=== PATIENT | female | born 1965 | race African-American/Black ===

== ENCOUNTER 2019-11-09 13:08 | Emergency (ER) | payer MEDICARE, MEDICAID ==
[~2019-11-09] VITALS: Ht 157.5 cm; Wt 77.1 kg
[2019-11-09 13:10] VITALS: BP 138/90
--- NOTE | 2019-11-09 13:10 | NUR ---
ED Nurse Note: pt ambulated to ed from c/o nausea and vomiting from home starting saturday. pt said shes vomiting x 3 times. pt states he has headache and stomach pain. iv site established; line patent and intact. pt put on manager cardiac and gown.
[2019-11-09] MEDS ORDERED: DiphenhydrAMINE 50mg/ml Inj IVP ONE (13:15)
[2019-11-09] MEDS ORDERED: Metoclopramide 10mg/2ml Inj IVP ONE (13:15)
[2019-11-09] MEDS ORDERED: Morphine Sulfate 2mg/ml Inj(IV/IM USE ONLY) IVP ONE (13:15)
--- NOTE | 2019-11-09 13:17 | Emergency Room Report ---
History of Present Illness General Chief Complaint: Nausea, Vomiting, and Diarrhea Source: Patient, EMS Present Illness HPI Patient presents with 3 days of nausea vomiting and headache. The headache came on fairly quickly. She was drinking alcohol on but did not become ill until after that. She denies any coffee grounds or melena. The pain is epigastric but radiates to her back. She still has her gallbladder. She denies having this problem in the past. She felt a lump (RUQ) and was evaluated in [place] [facility] with ultrasound and CT scan. They told her that both of those were negative. This happened n the last few weeks. The lump has largely resolved but she still feels strange area in the right upper quadrant. She ate some lettuce that was later recalled from [email or web address]. She denies any diarrhea at this time. She is moving her bowels once a day. He does take omeprazole. No fevers, chills, sore throat, chest pain, palpitations, nausea, vomiting, diarrhea, dysuria, abdominal pain, shortness of breath, joint pain, rashes, depression, anxiety, visual changes, dizziness, headache. Allergies: Coded Allergies: METRONIDAZOLE (Verified Allergy, Unknown, 11/09/19) Patient History Past Medical History: see triage record Social History: Reports: smoking Social History Narrative Here with her son Reviewed Nursing Documentation: PMH: Agreed; PSxH: Agreed Review of Systems All Other Systems: negative except mentioned in HPI Physical Exam Vital Signs Date Time Temp Pulse Resp B/P (MAP) Pulse Ox O2 Delivery O2 Flow Rate FiO2 11/09/19 13:05 97.9 90 16 138/90 (106) 100 Room Air Sp02 EP Interpretation: reviewed, normal General Appearance: alert, Chronically Ill Head: normocephalic Eyes: bilateral eye normal inspection, bilateral eye PERRL, bilateral eye EOMI ENT: moist mucus membranes Neck: full range of motion, supple, no bony tend, other - Wearing soft collar Respiratory: lungs clear, normal breath sounds Cardiovascular #1: regular rate, rhythm Cardiovascular #2: 2+ radial (R) Gastrointestinal: normal inspection, normal bowel sounds, non tender, no mass, non-distended Genitourinary: no CVA tenderness Musculoskeletal: back normal, normal range of motion, digits/nails normal, gait /station normal Neurologic: alert, oriented x3, sensory intact, motor weakness - All extremities Psychiatric: anxious - Requesting pain medication Skin: warm/dry Medical Decision Making Diagnostic Impression: Primary Impression: Abdominal pain Qualified Codes: R10.84 - Generalized abdominal pain Additional Impressions: Headache Qualified Codes: R51 - Headache UTI (urinary tract infection) Qualified Codes: N39.0 - Urinary tract infection, site not specified ER Course Patient presents with right upper quadrant pain with vomiting nausea and headache. Differential includes viral syndrome, pancreatitis, all bladder disease, gastritis, peptic ulcer disease amongst others. Even though she was exposed to possibly tainted ty [place] E. coli is less likely as there is no diarrhea. She denies any sore throat and therefore influenza is less likely also. Evaluation with EKG and labs. With recent imaging that was normal and her exam imaging is not indicated at the moment. If labs are abnormal consider other studies. EKG without injury. Labs with normal white count. Elevated hemoglobin and BUN and creatinine. Lipase normal. Patient continues with headache that slightly better after morphine and Reglan. She feels somewhat nauseated and still has a bit of epigastric discomfort. Zofran and morphine are repeated with a larger dose of morphine. Discussed results with patient and son. Patient stable for outpatient observation and treatment. Laboratory Tests Test 11/09/19 13:35 11/09/19 14:40 White Blood Count 10.0 K/UL (4.8-10.8) Red Blood Count 5.44 M/UL (4.20-5.40) H Hemoglobin 16.4 G/DL (12.0-16.0) H Hematocrit 50.6 % (37.0-47.0) H Mean Corpuscular Volume 93 FL (80-99) Mean Corpuscular Hemoglobin 30.2 PG (27.0-31.0) Mean Corpuscular Hemoglobin Concent 32.4 G/DL (32.0-36.0) Red Cell Distribution Width 13.0 % (11.6-14.8) Platelet Count 331 K/UL (150-450) Mean Platelet Volume 7.4 FL (6.5-10.1) Neutrophils (%) (Auto) 67.3 % (45.0-75.0) Lymphocytes (%) (Auto) 21.6 % (20.0-45.0) Monocytes (%) (Auto) 9.0 % (1.0-10.0) Eosinophils (%) (Auto) 0.5 % (0.0-3.0) Basophils (%) (Auto) 1.6 % (0.0-2.0) Prothrombin Time 10.0 SEC (9.30-11.50) Prothrombin Time INR 0.9 (0.9-1.1) PTT 23 SEC (23-33) Sodium Level 140 MMOL/L (136-145) Potassium Level 3.1 MMOL/L (3.5-5.1) L Chloride Level 98 MMOL/L (98-107) Carbon Dioxide Level 30 MMOL/L (21-32) Anion Gap 12 mmol/L (5-15) Blood Urea Nitrogen 17 mg/dL (7-18) Creatinine 1.5 MG/DL (0.55-1.30) H Estimate Glomerular Filtration Rate 36.4 mL/min (>60) Glucose Level 129 MG/DL (74-106) H Calcium Level 10.1 MG/DL (8.5-10.1) Total Bilirubin 0.6 MG/DL (0.2-1.0) Aspartate Amino Transferase (AST) 18 U/L (15-37) Alanine Aminotransferase (ALT) 27 U/L (12-78) Alkaline Phosphatase 72 U/L (46-116) Troponin I 0.000 ng/mL (0.000-0.056) Total Protein 9.0 G/DL (6.4-8.2) H Albumin 4.4 G/DL (3.4-5.0) Globulin 4.6 g/dL Albumin/Globulin Ratio 1.0 (1.0-2.7) Lipase 64 U/L (73-393) L Urine Color Pale yellow Urine Appearance Slightly cloudy Urine pH 5 (4.5-8.0) Urine Specific [place] 1.020 (1.005-1.035) Urine Protein 2+ (NEGATIVE) H Urine Glucose (UA) Negative (NEGATIVE) Urine Ketones Negative (NEGATIVE) Urine Blood 2+ (NEGATIVE) H Urine Nitrite Negative (NEGATIVE) Urine Bilirubin Negative (NEGATIVE) Urine Urobilinogen Normal MG/DL (0.0-1.0) Urine Leukocyte Esterase 1+ (NEGATIVE) H Urine RBC 2-4 /HPF (0 - 2) H Urine WBC 15-20 /HPF (0 - 2) H Urine Squamous Epithelial Cells Many /LPF (NONE/OCC) H Urine Bacteria Few /HPF (NONE) Urine Opiates Screen Positive (NEGATIVE) H Urine Barbiturates Screen Negative (NEGATIVE) Phencyclidine (PCP) Screen Negative (NEGATIVE) Urine Amphetamines Screen Negative (NEGATIVE) Urine Benzodiazepines Screen Negative (NEGATIVE) Urine Cocaine Screen Negative (NEGATIVE) Urine Marijuana (THC) Screen Positive (NEGATIVE) H EKG Diagnostic Results Rate: normal Rhythm: NSR ST Segments: no acute changes - Left atrial enlargement Rhythm Strip Diag. Results EP Interpretation: yes Rhythm: NSR, no PVC's, no ectopy Chest X-Ray Diagnostic Results Chest X-Ray Diagnostic Results : Chest X-Ray Ordered: Yes # of Views/Limited/Complete: 1 View Indication: Other EP Interpretation: Yes Interpretation: no consolidation, no effusion, no pneumothorax, other - Port -A-Cath present, resolution of left infiltrate Impression: Other Electronically Signed by: Electronically signed by Froilan Blake MD Last Vital Signs Date Time Temp Pulse Resp B/P (MAP) Pulse Ox O2 Delivery O2 Flow Rate FiO2 11/09/19 17:00 98.9 86 14 157/86 99 Room Air Status: improved Disposition: HOME, SELF-CARE Condition: Improved Scripts Nitrofurantoin Monohyd/M-Cryst* (MACROBID 100 MG*) 100 Mg Capsule 100 MG ORAL EVERY 12 HOURS, #14 CAP Prov: Froilan Blake MD 11/09/19 Ondansetron Odt* (ZOFRAN ODT*) 4 Mg Tab.rapdis 4 MG BC EVERY 8 HOURS, #6 TAB 0 Refills Prov: Froilan Blake MD 11/09/19 Hydrocodone Bit/Acetaminophen 5-325* (NORCO 5-325*) 1 Each Tablet 1 TAB ORAL Q6H PRN for For Pain, #8 TAB 0 Refills Prov: Froilan Blake MD 11/09/19 Froilan Blake MD Nov 09, 2019 13:17
[2019-11-09 13:58] LABS: BASOPHILS % (AUTO) 1.6 % (0.0-2.0); EOSINOPHILS % (AUTO) 0.5 % (0.0-3.0); HEMATOCRIT 50.6 % (37.0-47.0); HEMOGLOBIN 16.4 G/DL (12.0-16.0); LYMPHOCYTES % (AUTO) 21.6 % (20.0-45.0); MEAN CORPUSCULAR VOLUME 93 FL (80-99); NEUTROPHILS % (AUTO) 67.3 % (45.0-75.0); PLATELET COUNT 331 K/UL (150-450); RED BLOOD COUNT 5.44 M/UL (4.20-5.40)
--- NOTE | 2019-11-09 14:00 | NUR ---
ED Nurse Note: pt ambulated to bathroom with steady gait. pt was able to obtain urine specimen. Specimen sent to lab.
[2019-11-09 14:09] LABS: ANION GAP 12 mmol/L (5-15); BLOOD UREA NITROGEN 17 mg/dL (7-18); CALCIUM 10.1 MG/DL (8.5-10.1); CARBON DIOXIDE 30 MMOL/L (21-32); CHLORIDE 98 MMOL/L (98-107); CREATININE 1.5 MG/DL (0.55-1.30); POTASSIUM 3.1 MMOL/L (3.5-5.1); SODIUM 140 MMOL/L (136-145)
[2019-11-09 14:10] LABS: INR 0.9 (0.9-1.1)
[2019-11-09 14:13] LABS: ALANINE AMINOTRANSFERASE 27 U/L (12-78); ALBUMIN 4.4 G/DL (3.4-5.0); ALKALINE PHOSPHATASE 72 U/L (46-116); ASPARTATE AMINO TRANSFERASE 18 U/L (15-37); BILIRUBIN,TOTAL 0.6 MG/DL (0.2-1.0)
--- NOTE | 2019-11-09 14:20 | NUR ---
ED Nurse Note: Pt handed off to JEFF Soriano for continuity of care. vss. no pending orders at this time.
[2019-11-09 15:34] LABS: APPEARANCE,URINE SLIGHTLY CLOUDY; BILIRUBIN, URINE NEGATIVE (NEGATIVE); COLOR,URINE PALE YELLOW; GLUCOSE, URINE (UA) NEGATIVE (NEGATIVE); KETONES,URINE NEGATIVE (NEGATIVE); LEUKOCYTE ESTERASE ,URINE 1+ (NEGATIVE); NITRITE,URINE NEGATIVE (NEGATIVE); PH,URINE 5 (4.5-8.0); PROTEIN,URINE 2+ (NEGATIVE); UROBILINOGEN,URINE NORMAL MG/DL (0.0-1.0)
[2019-11-09] MEDS ORDERED: cefTRIAXone 1 GM in NS 55 ML IVPB ONE (16:00)
[2019-11-09] MEDS ORDERED: Morphine Sulfate 4mg/ml Inj (IV USE ONLY) IVP ONE (16:15)
[2019-11-09] MEDS ORDERED: ONDANSETRON ODT4 MG BC (16:19)
[2019-11-09] MEDS ORDERED: NORCO 5-325 TA1 EACH ORAL (16:19)
[2019-11-09] MEDS ORDERED: NITROFURANTOIN100 M2 ORAL (16:35)
[2019-11-09] MEDS ORDERED: LIORESAL20 MG ORAL (16:40)
[2019-11-09] MEDS ORDERED: LETROZOLE2.5 MG ORAL (16:44)
[2019-11-09] MEDS ORDERED: LOSARTAN POTASS25 MG ORAL (16:44)
[2019-11-09] MEDS ORDERED: PANTOPRAZOLE SO40 MG ORAL (16:49)
[2019-11-09] MEDS ORDERED: GABAPENTIN600 MG ORAL (16:49)
[2019-11-09] MEDS ORDERED: HYDROCHLOROTHIA25 MG ORAL (16:49)
[2019-11-09] MEDS ORDERED: ALIVE ONCE DAI1 EACH PO (16:49)
[2019-11-09 17:00] VITALS: BP 157/86
--- NOTE | 2019-11-09 17:00 | NUR ---
ED Nurse Note: Pt cleared by health care Provider for discharge. DC instructions/prescription was given and explained to pt and verbalized understanding of teachings. All medical deviecs such as ID band and IV removed. Pt is AAO x4, ambulatory and left with all personal belongings.
== END 2019-11-09 17:00 | disposition home or self-care (01) ==
LOC: EDBD 13:08 → EMR 15:50
DX: N39.0 Urinary tract infection, site not specified (principal); R51 Headache; R10.84 Generalized abdominal pain; F17.200 Nicotine dependence, unspecified, uncomplicated; Z88.8 Allergy status to other drugs, medicaments and biological substances
CPT/HCPCS: 36415; 80053; 80307; 81003; 83690; 84484; 85025; 85610; 85730; 87086; 93005; 96361; 96365; 96375; 96376; 99284; J0696; J1200; J2270; J2405; J2765; J7030; S0028

== ENCOUNTER 2019-11-13 01:20 | Emergency (ER) | payer MEDICARE, MEDICAID ==
[~2019-11-13] VITALS: Ht 165.1 cm; Wt 91.2 kg
[~2019-11-13 01:20] MED LIST: ALIVE ONCE DAI1 EACH PO; GABAPENTIN600 MG ORAL; HYDROCHLOROTHIA25 MG ORAL; LETROZOLE2.5 MG ORAL; LIORESAL20 MG ORAL; LOSARTAN POTASS25 MG ORAL; NITROFURANTOIN100 M2 ORAL; NORCO 5-325 TA1 EACH ORAL; ONDANSETRON ODT4 MG BC; PANTOPRAZOLE SO40 MG ORAL
[2019-11-13 01:26] VITALS: BP 165/88
--- NOTE | 2019-11-13 01:26 | NUR ---
ED Nurse NotE PT BROUGHT IN BY RA 68 FOR C/O HEADACHE X 1 WEEK. PT HAS HX OF CVA. PT BP AT TRIAGE WAS 190/125 BUT CURRENTLY I 165/88 ON MONITOR. PT IS ALERT X4.
[2019-11-13] MEDS ORDERED: HYDROmorphone 1mg/ml Carpuject IM ONE (01:30)
[2019-11-13] MEDS ORDERED: MECLIZINE HCL25 MG ORAL (01:31)
[2019-11-13] MEDS ORDERED: ASPIRIN325 MG ORAL (01:31)
[2019-11-13] MEDS ORDERED: ATORVASTATIN CA40 MG ORAL (01:31)
[2019-11-13] MEDS ORDERED: CELEBREX200 MG ORAL (01:31)
--- NOTE | 2019-11-13 01:31 | Emergency Room Report ---
History of Present Illness General Chief Complaint: Headache Source: Patient Present Illness HPI This is a 54-year-old female with history of high blood pressure. She presents with chief plan of headache. Onset has been going on for almost a week now. She was seen here initially for headache abdominal pain. Labs are unremarkable. Pain is well controlled with morphine and she was discharged home. She continued to have headache and she presented to [facility] shortly afterward. She had a CT scan and was admitted to the hospital for couple of days. She said that an MRI showed that she had 2 small area of strokes. She was discharged home with aspirin and dizzy medication. She also had a Holter monitor on. She is at her boyfriend's place and still having headache. She called 911. She did not take any of her [place] No. 10 milligrams because they are at home. Complain of throbbing headache 10 out of 10. Pain. No fever chills. No abdominal pain. Denies any other complaint. No focal deficit. Nothing made it better. Nothing made it worse. Allergies: Coded Allergies: METRONIDAZOLE (Verified Allergy, Unknown, 11/09/19) Patient History Past Medical History: see triage record, old chart reviewed, HTN, CVA/TIA Past Surgical History: other Pertinent Family History: none Social History: Denies: smoking Last Menstrual Period: NA Now: No Immunizations: other Reviewed Nursing Documentation: PMH: Agreed; PSxH: Agreed Nursing Documentation-PMH Past Medical History: No History, Except For Hx Cardiac Problems: Yes - gerd, hyperlipidemia, hx of right sided cva, breast ca Hx Hypertension: Yes Hx Gastrointestinal Problems: Yes - GERD Review of Systems Eye: Denies: eye pain, blurred vision ENT: Denies: ear pain, nose congestion, throat swelling Respiratory: Denies: cough, shortness of breath Cardiovascular: Denies: chest pain, palpitations Gastrointestinal: Denies: abdominal pain, diarrhea, nausea, vomiting Musculoskeletal: Denies: back pain, joint pain Skin: Denies: rash Neurological: Reports: headache; Denies: numbness Endocrine: Denies: increased thirst, increased urine Hematologic/Lymphatic: Denies: easy bruising All Other Systems: negative except mentioned in HPI Physical Exam Vital Signs Date Time Temp Pulse Resp B/P (MAP) Pulse Ox O2 Delivery O2 Flow Rate FiO2 11/13/19 01:22 98.1 81 18 190/125 (146) 99 Room Air Vitals with high blood pressure Sp02 EP Interpretation: reviewed, normal General Appearance: well appearing, no apparent distress, alert, obese Head: normocephalic, atraumatic Eyes: bilateral eye PERRL, bilateral eye EOMI ENT: hearing grossly normal, normal pharynx Neck: full range of motion, supple, no meningismus Respiratory: chest non-tender, lungs clear, normal breath sounds Cardiovascular #1: regular rate, rhythm, no murmur Gastrointestinal: normal bowel sounds, non tender, no mass, no organomegaly, no bruit, non-distended Musculoskeletal: back normal, normal range of motion, gait/station normal Psychiatric: mood/affect normal Medical Decision Making Diagnostic Impression: Primary Impression: Headache Qualified Codes: R51 - Headache Additional Impressions: Hypertension Qualified Codes: I10 - Essential (primary) hypertension Opiate dependence Qualified Codes: F11.20 - Opioid dependence, uncomplicated ER Course Patient presents with headache and high blood pressure. No acute bleed. I suspect there was some abnormality on the CAT scan and MRIs show lacunar infarcts because of her high blood pressure. There is no focal deficit. Return out that she lives in [place] and she has chronic pain. She takes [place] 10 mg tabs a day. She is currently in [place] living with her boyfriend. She will not be back for another week. She has been out of her medication for about a week. I suspect that this pain is from withdrawal. She was seen here last week and Dr. Blake wrote a prescription for St[place]. She said that the pharmacy would not fill it because she is currently in pain management and get chronic opiates monthly. She still has a prescription with her. She said that she will be back in [place] for another week. CT/MRI/US Diagnostic Results CT/MRI/US Diagnostic Results : Imaging Test Ordered: CT head Impression Read by radiologist. Negative. Last Vital Signs Date Time Temp Pulse Resp B/P (MAP) Pulse Ox O2 Delivery O2 Flow Rate FiO2 11/13/19 01:22 98.1 81 18 190/125 (146) 99 Room Air Status: improved Disposition: HOME, SELF-CARE Condition: Stable Patient Instructions: General Headache Without Cause Trevor Martins MD Nov 13, 2019 01:31
[2019-11-13] MEDS ORDERED: cloNIDine 0.2mg Tab ORAL ONE (01:45)
--- NOTE | 2019-11-13 02:20 | NUR ---
ED Nurse Note: pt TAKEN TO CT SCAN ACCOMPANIED BY TECH IN STABLCE CONDITION.
--- NOTE | 2019-11-13 02:40 | NUR ---
ED Nurse Note: PT RETURNED BACK FROM CT IN STABLE CONDITION.
--- NOTE | 2019-11-13 03:17 | Diagnostic Imaging Report ---
Indications: Headache for one day Technique: Spiral acquisitions obtained through the brain. Angled axial and coronal 5 x 5 mm slices were reconstructed. Total dose length product 1274 mGycm. CTDI vol(s) 60 mGy. Dose reduction achieved using automated exposure control Comparison: None. Findings: There is fairly extensive, for age, periventricular deep white matter low-attenuation. There is suggestion of multiple confluent low-attenuation areas in the anterior left basal ganglia. Normal size ventricles and extra-axial CSF spaces. No acute intracranial hemorrhage or edema, mass effect, nor midline shift. Otherwise normal roy-white differentiation. The mastoids are clear. The calvarium is intact. Visualized orbits and sinuses are unremarkable. Impression: Chronic and age-related changes, including old left basal ganglia infarcts and periventricular deep white matter chronic ischemic change. Negative for acute intracranial bleed or mass effect periventricular and left basal ganglia low-attenuation. Probably on the basis of chronic microvascular ischemic change. Given patient's age, possibly a demyelinating disease should also be considered. Negative for acute intracranial bleed or mass effect This agrees with the preliminary interpretation provided overnight by [facility] teleradiology service. The CT scanner at [facility] is accredited by the [employer] [employer] and the scans are performed using protocols designed to limit radiation exposure to as low as reasonably achievable to attain images of sufficient resolution adequate for diagnostic evaluation.
[2019-11-13] MEDS ORDERED: HYDROcodone/Acetamin 5/325 tab ORAL ONE (03:45)
[2019-11-13 03:58] VITALS: BP 155/90
--- NOTE | 2019-11-13 03:58 | NUR ---
ER DISCHARGE NOTE: Patient is cleared to be discharged per ERMD, pt is aox4, on room air, with stable vital signs. pt was given dc and prescription instructions, pt was able to verbalize understanding, pt id band removed without complications. pt took all belongings. pt was wheeled out via hospital w/c and left via "[facility]" in stable condition.
== END 2019-11-13 03:58 | disposition home or self-care (01) ==
LOC: EDBD 01:20 → EDUNIT# 01:20 → EMR 01:44
DX: R51 Headache (principal); I10 Essential (primary) hypertension; F11.20 Opioid dependence, uncomplicated; K21.9 Gastro-esophageal reflux disease without esophagitis; E78.5 Hyperlipidemia, unspecified; Z85.3 Personal history of malignant neoplasm of breast; Z86.73 Personal history of transient ischemic attack (TIA), and cerebral infarction without residual deficits; Z88.8 Allergy status to other drugs, medicaments and biological substances
CPT/HCPCS: 70450; 96372; 99284; J1170

== ENCOUNTER 2019-11-14 20:17 | Inpatient (IN) | payer MEDICARE, MEDICAID ==
[~2019-11-14] VITALS: Ht 157.5 cm; Wt 91.9 kg
[~2019-11-14 20:17] MED LIST changes: +ASPIRIN325 MG ORAL; +ATORVASTATIN CA40 MG ORAL; +CELEBREX200 MG ORAL; +MECLIZINE HCL25 MG ORAL
--- NOTE | 2019-11-14 21:50 | NUR ---
NURSE NOTES: Received report from Clarisa. From [facility]. Patient is stable, labs are within range, patient in no distress at this time. Ready for transport. Will continue to monitor.
--- NOTE | 2019-11-14 22:50 | NUR ---
NURSE NOTES: Patient arrived via [facility] transport, placed on monitor with family members at bedside. Patient able to follow commands some delayed speech noted. Patient able to ambulate and make needs known. Will call Dr. North for admitting orders.
[2019-11-15] VITALS: BP 162/99
[2019-11-15] MEDS: HYDROcodone/Acetamin 10/325 tab ORAL PRN ×2 (01:22→12:11)
[2019-11-15 03:05] VITALS: BP 162/99
[2019-11-15] MEDS ORDERED: ADVIL200 MG ORAL (03:52)
[2019-11-15] MEDS ORDERED: HYDROCODON-ACE1 EA13 ORAL (03:52)
[2019-11-15] MEDS ORDERED: MECLIZINE HCL25 MG ORAL (03:52)
[2019-11-15] MEDS ORDERED: ZOFRAN4 MG ORAL (03:52)
[2019-11-15 04:00] VITALS: BP 169/112
--- NOTE | 2019-11-15 07:40 | NUR ---
HAND-OFF: Report given to JEFF Almodovar. Patient in bed resting stable at Hand-off.
[2019-11-15 07:56] VITALS: BP 168/101
--- NOTE | 2019-11-15 08:00 | NUR ---
NURSE NOTES: SPOKE W DR HOLMAN RE CONSULT, PER DR HOLMAN 'OK"
[2019-11-15 08:10] LABS: BASOPHILS % (AUTO) 1.6 % (0.0-2.0); EOSINOPHILS % (AUTO) 0.7 % (0.0-3.0); HEMATOCRIT 43.1 % (37.0-47.0); HEMOGLOBIN 14.9 G/DL (12.0-16.0); LYMPHOCYTES % (AUTO) 31.7 % (20.0-45.0); MEAN CORPUSCULAR VOLUME 90 FL (80-99); MONOCYTES % (AUTO) 10.2 % (1.0-10.0); NEUTROPHILS % (AUTO) 55.8 % (45.0-75.0); PLATELET COUNT 350 K/UL (150-450); RED BLOOD COUNT 4.78 M/UL (4.20-5.40); RED CELL DISTRIBUTION WIDTH 11.7 % (11.6-14.8); WHITE BLOOD COUNT 9.2 K/UL (4.8-10.8)
[2019-11-15] MEDS: Aspirin Baby 81mg ORAL SCH (08:10)
[2019-11-15] MEDS: Losartan 25mg tab ORAL SCH (08:10)
--- NOTE | 2019-11-15 08:14 | Consultation ---
History of Present Illness General Date patient seen: Nov 15, 2019 Reason for Consultation: inpatient management Present Illness HPI 54 year old female with hx of HTN, TIA was taken to [facility] with acute onset of slurred speech. She had a CT of head at [place], showing hypodense area c/w chronic CVA. She is transferred to [facility] for further management. Allergies: Coded Allergies: METRONIDAZOLE (Verified Allergy, Unknown, 11/09/19) Medication History Scheduled Aspirin* (Aspirin*), 325 MG ORAL DAILY, (Reported) Atorvastatin Calcium* (Atorvastatin Calcium*), 80 MG ORAL BEDTIME, (Reported) Celecoxib* (Celebrex*), 200 MG ORAL DAILY, (Reported) Hydrochlorothiazide* (Hydrochlorothiazide*), 25 MG ORAL DAILY, (Reported) Hydrocodone Bit/Acetaminophen 10-325* (Hydrocodon-Acetaminophn 10-325*), 1 TAB ORAL Q8H, (Reported) Ibuprofen* (Advil*), 200 MG ORAL Q6H, (Reported) Meclizine Hcl* (Meclizine*), 25 MG ORAL THREE TIMES A DAY, (Reported) Meclizine Hcl* (Meclizine*), 25 MG ORAL THREE TIMES A DAY, (Reported) Nitrofurantoin Monohyd/M-Cryst* (Macrobid 100 Mg*), 100 MG ORAL EVERY 12 HOURS Ondansetron Odt* (Zofran Odt*), 4 MG BC EVERY 8 HOURS Pantoprazole* (Pantoprazole*), 40 MG ORAL DAILY, (Reported) Scheduled PRN Gabapentin* (Gabapentin*), 600 MG ORAL THREE TIMES A DAY PRN for For Seizures, ( Reported) Losartan Potassium* (Losartan Potassium*), 25 MG ORAL DAILY PRN for For High Blood Pressure, (Reported) Ondansetron (Zofran), 4 MG ORAL Q8H PRN for Nausea & Vomiting, (Reported) Miscellaneous Medications Mv-Mn/Folic Acid/Vit [id number] (Alive Once Daily Women 50 Plus), 1 EACH PO, ( Reported) Discontinued Medications Baclofen (Baclofen), 20 MG ORAL DAILY, (Reported) Discontinued Reason: MD discontinued med Hydrocodone Bit/Acetaminophen 5-325* ([place] 5-325*), 1 TAB ORAL Q6H PRN for For Pain Discontinued Reason: Pt stopped taking med Letrozole (Letrozole), 2.5 MG ORAL DAILY, (Reported) Discontinued Reason: MD discontinued med Patient History Healthcare decision maker Self Resuscitation status Full Code Advanced Directive on File No Past Medical/Surgical History Past Medical/Surgical History: (1) History of CVA (cerebrovascular accident) (2) History of hypertension Review of Systems Constitutional: Reports: no symptoms Eye: Reports: no symptoms ENT: Reports: no symptoms All Other Systems: negative except mentioned in HPI Physical Exam General Appearance: WD/WN Lines, tubes and drains: peripheral HEENT: normocephalic, anicteric Neck: non-tender, normal alignment Respiratory/Chest: chest wall non-tender, lungs clear Abdomen: normal bowel sounds, non tender Genitourinary/Rectal: normal genital exam Extremities: normal range of motion Skin Exam: normal pigmentation Last 24 Hour Vital Signs Date Time Temp Pulse Resp B/P (MAP) Pulse Ox O2 Delivery O2 Flow Rate FiO2 11/15/19 08:10 168/101 11/15/19 07:56 98.0 89 20 168/101 (123) 98 11/15/19 04:00 100.0 99 20 169/112 (131) 98 11/15/19 04:00 112 11/15/19 00:00 99.0 85 18 162/99 (120) 97 11/15/19 00:00 82 11/14/19 23:22 Room Air 11/14/19 22:51 86 Laboratory Tests Test 11/15/19 05:38 White Blood Count Pending Red Blood Count Pending Hemoglobin Pending Hematocrit Pending Mean Corpuscular Volume Pending Mean Corpuscular Hemoglobin Pending Mean Corpuscular Hemoglobin Concent Pending Red Cell Distribution Width Pending Platelet Count Pending Mean Platelet Volume Pending Neutrophils (%) (Auto) Pending Lymphocytes (%) (Auto) Pending Monocytes (%) (Auto) Pending Eosinophils (%) (Auto) Pending Basophils (%) (Auto) Pending Sodium Level Pending Potassium Level Pending Chloride Level Pending Carbon Dioxide Level Pending Blood Urea Nitrogen Pending Creatinine Pending Estimat Glomerular Filtration Rate Pending Glucose Level Pending Calcium Level Pending Phosphorus Level Pending Magnesium Level Pending Total Bilirubin Pending Aspartate Amino Transf (AST/SGOT) Pending Alanine Aminotransferase (ALT/SGPT) Pending Alkaline Phosphatase Pending Total Protein Pending Albumin Pending Globulin Pending Triglycerides Level Pending Cholesterol Level Pending LDL Cholesterol Pending HDL Cholesterol Pending Cholesterol/HDL Ratio Pending Microbiology Date/Time Source Procedure Growth Status 11/15/19 00:00 Rectum Received Height (Feet): 5 Height (Inches): 2.00 Weight (Pounds): 198 Medications Current Medications Medications (Trade) Dose Ordered Sig/Gracie Route PRN Reason Start Time Stop Time Status Last Admin Dose Admin Acetaminophen/ Hydrocodone Bitart ([place] 10/325) 1 tab TIDPRN PRN ORAL For Pain 11/15/19 00:45 11/22/19 00:44 11/15/19 01:22 Aspirin (ASA) 81 mg DAILY ORAL 11/15/19 09:00 12/15/19 08:59 11/15/19 08:10 Atorvastatin Calcium (Lipitor) 80 mg BEDTIME ORAL 11/15/19 21:00 12/15/19 20:59 Clopidogrel Bisulfate (Plavix) 75 mg DAILY ORAL 11/15/19 09:00 12/15/19 08:59 11/15/19 08:09 Enalaprilat (Vasotec) 2.5 mg EVERY 4 HOURS PRN IV sbp more than 200 11/15/19 08:15 12/15/19 08:14 UNV Gabapentin (Neurontin) 600 mg THREE TIMES A DAY ORAL 11/15/19 09:00 12/15/19 08:59 11/15/19 08:09 Heparin Sodium (Porcine) (Heparin 5000 units/ml) 5,000 units EVERY 12 HOURS SUBQ 11/15/19 09:00 12/15/19 08:59 UNV Hydralazine HCl (Apresoline) 20 mg Q4H PRN IV sbp more than 160 11/15/19 08:15 12/15/19 08:14 UNV Hydrochlorothiazide (Hydrodiuril) 25 mg DAILY ORAL 11/15/19 09:00 12/15/19 08:59 11/15/19 08:09 Ibuprofen (Advil) 200 mg EVERY 4 HOURS PRN ORAL Pain Scale (3-5) 11/15/19 00:45 12/15/19 00:44 Labetalol HCl (Normodyne) 20 mg EVERY HOUR PRN IV sbo more than 180 11/15/19 08:15 12/15/19 08:14 UNV Letrozole (Femara) 2.5 mg DAILY ORAL 11/15/19 09:00 11/20/19 08:59 Losartan Potassium (Cozaar) 25 mg DAILY ORAL 11/15/19 09:00 12/15/19 08:59 11/15/19 08:10 Ondansetron HCl (Zofran ODT) 4 mg TIDPRN PRN ORAL Nausea & Vomiting 11/15/19 00:45 12/15/19 00:44 Pantoprazole (Protonix) 40 mg DAILY ORAL 11/15/19 09:00 12/15/19 08:59 11/15/19 08:09 Assessment/Plan Problem List: (1) Acute CVA (cerebrovascular accident) ICD Codes: I63.9 - Cerebral infarction, unspecified SNOMED: 045834774, 427705248 (2) History of CVA (cerebrovascular accident) ICD Codes: Z86.73 - Personal history of transient ischemic attack (TIA), and cerebral infarction without residual deficits SNOMED: 691498648 (3) History of hypertension ICD Codes: Z86.79 - Personal history of other diseases of the circulatory system SNOMED: 223530909 Assessment/Plan: pt/ot evaluation echo doppler of carotid artery monitor BP neurology evaluation dvt prophylaxis, symptomatic treatment check electrolytes. Isael Mack MD Nov 15, 2019 08:14
[2019-11-15] MEDS ORDERED: Labetalol 5mg/ml 20ml vial IV PRN (08:15)
[2019-11-15] MEDS ORDERED: Enalaprilat 2.5mg/2ml Inj IV PRN (08:15)
[2019-11-15 08:42] LABS: ALANINE AMINOTRANSFERASE 49 U/L (12-78); ALBUMIN 3.6 G/DL (3.4-5.0); ALBUMIN/GLOBULIN RATIO 0.9 (1.0-2.7); ALKALINE PHOSPHATASE 65 U/L (46-116); ANION GAP 11 mmol/L (5-15); ASPARTATE AMINO TRANSFERASE 48 U/L (15-37); BILIRUBIN,TOTAL 0.6 MG/DL (0.2-1.0); BLOOD UREA NITROGEN 10 mg/dL (7-18); CALCIUM 9.1 MG/DL (8.5-10.1); CARBON DIOXIDE 28 MMOL/L (21-32); CHLORIDE 97 MMOL/L (98-107); CHOLESTEROL 157 MG/DL (< 200); CREATININE 0.8 MG/DL (0.55-1.30); HDL CHOLESTEROL 42 MG/DL (40-60); PHOSPHORUS 3.4 MG/DL (2.5-4.9); POTASSIUM 2.9 MMOL/L (3.5-5.1); SODIUM 136 MMOL/L (136-145); TRIGLYCERIDES 106 MG/DL (30-150)
[2019-11-15] MEDS: Heparin 5000 units/ml inj SUBQ SCH ×2 (09:30→21:00)
--- NOTE | 2019-11-15 10:37 | NUR ---
NURSE NOTES: patient awake alert, no distress. no sob. no c/o pain . call light within reach. will monitor.
[2019-11-15 10:53] VITALS: BP 172/101
--- NOTE | 2019-11-15 11:00 | NUR ---
PT Note Attempted to see patient for PT eval/tx. Patient's BP was 171/102, HR 101. Will hold off on PT; check again in AM. RN is aware.
--- NOTE | 2019-11-15 12:45 | NUR ---
NURSE NOTES: PAGED DR ARTEAGA FOR STRONGER THAN NORCO AND IBUPROFEN, PATIENT STILL HAS HEADACHE. AWAITING ORDERS
--- NOTE | 2019-11-15 14:13 | History & Physical ---
History and Physical History & Physicial Dictated for Int Med - Dr North no. [id number]. Brennen Dunn MD Nov 15, 2019 14:12
[2019-11-15] MEDS: SUMAtriptan 100mg tab ORAL PRN (14:41)
--- NOTE | 2019-11-15 16:00 | History and Physical Report ---
DATE OF ADMISSION: 11/14/2019 CHIEF COMPLAINT: The patient is a 54-year-old female who presents with a chief complaint of slurred speech. HISTORY OF PRESENT ILLNESS: The patient was admitted to [facility] from November 11, 2019 to November 12, 2019. The patient was diagnosed with transient ischemic attack. The patient apparently was at home with her son yesterday November 14, 2019. The patient went to take a nap. The patient suddenly began to slur her speech. The patient had some right-sided weakness. The patient presented initially to [facility] emergency room. An initial CT scan of the brain revealed left basal ganglia hypodensity consistent with subacute stroke. The patient then underwent a CT angiogram of the head at [facility] which was reported as no stenosis, dissection, or aneurysm. The patient was transferred to [facility] for insurance purposes. The patient is admitted with slurred speech and right-sided weakness to rule out acute cerebrovascular accident. REVIEW OF SYSTEMS: CONSTITUTIONAL: The patient denies weight loss or weight gain. The patient denies fevers or chills. HEENT: The patient denies ear or throat pain. The patient denies headache. CARDIOVASCULAR: The patient denies palpitations or chest pain. CHEST: The patient denies wheeze or shortness of breath. ABDOMINAL: The patient denies nausea, vomiting, diarrhea, or constipation. GENITOURINARY: The patient denies dysuria or increased frequency of urination. NEUROMUSCULAR: The patient complains of slurred speech as above. The patient denies seizures. The patient complains of right-sided weakness as above. PAST MEDICAL HISTORY: Significant for: 1. Cerebrovascular accident at [facility] on November 11, 2019 as above. 2. Hypertension. PAST SURGICAL HISTORY: The patient denies. CURRENT MEDICATIONS: 1. Aspirin 325 mg one tablet p.o. daily. 2. Atorvastatin 80 mg p.o. daily. 3. Baclofen 10 mg p.o. twice daily. 4. Gabapentin 600 mg p.o. three times daily. 5. Hydrochlorothiazide 25 mg p.o. daily. 6. Femara 2.5 mg p.o. daily. 7. Losartan 25 mg p.o. daily. 8. Pantoprazole 40 mg p.o. daily. ALLERGIES: To metronidazole. SOCIAL HISTORY: The patient is a and lives alone. The patient admits to tobacco use of one pack per day. The patient admits to alcohol use of 2 glasses of wine daily. The patient denies drug abuse. PHYSICAL EXAMINATION: VITAL SIGNS: Temperature 97.8, respirations 16, pulse 73, blood pressure 178/87. GENERAL: The patient is well-developed and well-nourished slightly obese female, in no apparent distress. HEENT: Eyes, pupils are equal and responsive to light and accommodation. Extraocular movements are intact. NECK: Supple without lymphadenopathy. CHEST: Lungs are clear to auscultation bilaterally without wheezes or rales. CARDIOVASCULAR: Regular rhythm and rate. S1, S2. No murmurs, rubs, or gallops. ABDOMEN: Soft, nontender, nondistended. Positive bowel sounds. No evidence of hepatosplenomegaly. Currently, no rebound or guarding noted. EXTREMITIES: Negative for clubbing, cyanosis, edema. NEUROLOGICALLY: Cranial nerves II through XII are grossly intact without focal deficits. Motor strength is 5/5 bilaterally. Deep tendon reflexes are 2+ plantar. LABORATORY STUDIES: WBC 11.3, hemoglobin 14.4, hematocrit 42.2, platelets 228,000. Sodium 128, potassium 3.1, chloride 86, CO2 28, BUN 11, creatinine 0.86, glucose 110. Troponin less than 0.02. CT scan of the brain at [facility] revealed left basal ganglia hypodensity consistent with subacute cerebrovascular accident. ASSESSMENT: This is a 54-year-old female: 1. Dysarthria. 2. Right hemiplegia. 3. Cerebrovascular accident. 4. Hypertension. 5. Hypercholesterolemia. TREATMENT: 1. Dysarthria/right hemiplegia/cerebrovascular accident. A Neurology consultation has been obtained with . An MRI of the brain is pending. A CT scan at [facility] revealed subacute left basal ganglia cerebrovascular accident. We will follow recommendations of Neurology. An MRI of the brain is pending. 2. Hypertension. Continue hydrochlorothiazide and losartan as above. 3. Hypercholesterolemia. Continue atorvastatin as above. Brennen Dunn M.D. DR: BARAK/alcon JOB#: [id number] CC:
--- NOTE | 2019-11-15 19:19 | NUR ---
HAND-OFF: Report given to NGOZI AGUILAR. PT STATES IMITREX WAS EFFECTIVE IN RELIEVING MIGRAINE
--- NOTE | 2019-11-15 19:46 | NUR ---
NURSE NOTES: RECEIVED PATIENT RESTING IN BED, NO COMPLAINTS OF PAIN AT THIS TIME. FALL PRECAUTIONS IN PLACE: CALL LIGHT AND BEDSIDE TABLE WITHIN REACH, BED IN LOW POSITION. PLAN OF CARE REVIEWED.
[2019-11-15 20:00] VITALS: BP 181/101
[2019-11-15] MEDS: Atorvastatin 80mg tab ORAL SCH (20:58)
[2019-11-16] VITALS (7 sets, daily range): BP systolic 133–168; BP diastolic 76–100
[2019-11-16] MEDS: HYDROcodone/Acetamin 10/325 tab ORAL PRN ×2 (00:26→21:33)
[2019-11-16 07:05] LABS: BASOPHILS % (AUTO) 1.7 % (0.0-2.0); EOSINOPHILS % (AUTO) 0.5 % (0.0-3.0); HEMATOCRIT 43.9 % (37.0-47.0); LYMPHOCYTES % (AUTO) 21.9 % (20.0-45.0); MEAN CORPUSCULAR VOLUME 90 FL (80-99); MONOCYTES % (AUTO) 10.7 % (1.0-10.0); NEUTROPHILS % (AUTO) 65.2 % (45.0-75.0); PLATELET COUNT 377 K/UL (150-450); RED BLOOD COUNT 4.88 M/UL (4.20-5.40); RED CELL DISTRIBUTION WIDTH 12.1 % (11.6-14.8); WHITE BLOOD COUNT 10.7 K/UL (4.8-10.8)
[2019-11-16 07:19] LABS: ANION GAP 10 mmol/L (5-15); BLOOD UREA NITROGEN 11 mg/dL (7-18); CALCIUM 9.4 MG/DL (8.5-10.1); CARBON DIOXIDE 30 MMOL/L (21-32); CHLORIDE 96 MMOL/L (98-107); CREATININE 0.8 MG/DL (0.55-1.30); SODIUM 134 MMOL/L (136-145)
[2019-11-16 07:23] LABS: POTASSIUM 2.7 MMOL/L (3.5-5.1)
--- NOTE | 2019-11-16 07:44 | NUR ---
HAND-OFF: Report given to JEFF PEARCE. PATIENT RESTING IN BED, NO SIGNS OF DISTRESS NOTED. ENDORSED TO FOLLOW WITH MD ON K RESULT.
--- NOTE | 2019-11-16 07:45 | NUR ---
NURSE NOTES: Received report from Kelle/RN, Patient is asleep, lying semi-cat's, resting comfortably. On room air, no acute distress/SOB noted. Breathing even and unlabored. Able to make needs known. Denies pain at this time. Bed in low position and locked, Call light and personal belonging within reach, Encouraged to use call light when needed. Will continue plan of care.
[2019-11-16] MEDS: Losartan 25mg tab ORAL SCH (09:14)
[2019-11-16] MEDS: Aspirin Baby 81mg ORAL SCH (09:15)
[2019-11-16] MEDS: Heparin 5000 units/ml inj SUBQ SCH ×2 (09:23→20:46)
--- NOTE | 2019-11-16 09:35 | NUR ---
PT EVALUATION NOTE Patient seen for initial evaluation. Patient presents with generalized weakness and c/o double vision which affects patient's ability to perform mobility tasks. Patient requires SBA for transfers and ambulation without assistive device however ambulation tolerance limited by c/o double vision. Patient will benefit from skilled inpatient PT intervention to address strength, endurance, balance and safety including stair training for improved level of functional mobility. Anticipate discharge home once medically cleared by MD. DME needs to be determined, patient has SPC and four wheeled walker at home. Addendum: 11/16/19 at 1312 by GAMAL CABRERA PT Amended: Links added.
--- NOTE | 2019-11-16 09:39 | NUR ---
11/16/19...UNABLE TO DO MRI SCAN, HAS A [employer]IO HOLTER MONITOR THAT IS NOT MRI-COMPATIBLE. RN JANETT WILL INFORM DR. ESPINOZA. POP 08:30
[2019-11-16] MEDS: SUMAtriptan 100mg tab ORAL PRN (10:23)
--- NOTE | 2019-11-16 11:22 | Pulmonology Progress Note ---
Assessment/Plan Problems: (1) Acute CVA (cerebrovascular accident) (2) History of CVA (cerebrovascular accident) (3) History of hypertension Assessment/Plan pt/ot Neuro consult pending titrate cardiac / hypertensive meds check electrolytes. dvt prophylaxis Subjective ROS Limited/Unobtainable: No Interval Events: seeing double since this morning, walked to bathroom Allergies: Coded Allergies: METRONIDAZOLE (Verified Allergy, Unknown, 11/09/19) Objective Last 24 Hour Vital Signs Date Time Temp Pulse Resp B/P (MAP) Pulse Ox O2 Delivery O2 Flow Rate FiO2 11/16/19 09:14 155/96 11/16/19 09:00 Room Air 11/16/19 08:00 98.1 108 14 155/96 (115) 97 11/16/19 08:00 100 11/16/19 04:00 97.9 103 21 145/100 (115) 94 11/16/19 04:00 75 11/16/19 02:00 101 143/97 (112) 11/16/19 00:00 80 11/16/19 00:00 98.2 107 20 168/95 (119) 96 11/15/19 21:01 161/101 11/15/19 21:00 Room Air 11/15/19 20:00 99.7 103 20 181/101 (127) 96 11/15/19 20:00 111 11/15/19 17:38 90 11/15/19 13:53 98.0 11/15/19 12:41 98.0 11/15/19 11:45 80 Intake and Output 11/15/19 11/16/19 19:00 07:00 Intake Total 600 ml 240 ml Balance 600 ml 240 ml Intake Oral 600 ml 240 ml # Voids 2 2 General Appearance: WD/WN HEENT: atraumatic Respiratory/Chest: chest wall non-tender, lungs clear Breasts: no masses Cardiovascular: normal peripheral pulses Abdomen: normal bowel sounds, soft, non tender Genitourinary: normal external genitalia Extremities: no cyanosis Neurologic/Psychiatric: paid intern II-XII grossly normal Microbiology Date/Time Source Procedure Growth Status 11/15/19 00:00 Rectum Received Laboratory Tests 11/16/19 06:10: White Blood Count 10.7, Red Blood Count 4.88, Hemoglobin 15.0, Hematocrit 43.9, Mean Corpuscular Volume 90, Mean Corpuscular Hemoglobin 30.8, Mean Corpuscular Hemoglobin Concent 34.2, Red Cell Distribution Width 12.1, Platelet Count 377, Mean Platelet Volume 7.0, Neutrophils (%) (Auto) 65.2, Lymphocytes (%) (Auto) 21.9, Monocytes (%) (Auto) 10.7H, Eosinophils (%) (Auto) 0.5, Basophils (%) ( Auto) 1.7, Sodium Level 134L, Potassium Level 2.7*L, Chloride Level 96L, Carbon Dioxide Level 30, Anion Gap 10, Blood Urea Nitrogen 11, Creatinine 0.8, Estimat Glomerular Filtration Rate > 60, Glucose Level 138H, Calcium Level 9.4 Current Medications Medications (Trade) Dose Ordered Sig/Gracie Route PRN Reason Start Time Stop Time Status Last Admin Dose Admin Acetaminophen/ Hydrocodone Bitart (Curtis 10/325) 1 tab Q8H PRN ORAL Pain Scale (6-10) 11/15/19 13:15 11/22/19 00:44 11/16/19 00:26 Aspirin (ASA) 81 mg DAILY ORAL 11/15/19 09:00 12/15/19 08:59 11/16/19 09:15 Atorvastatin Calcium (Lipitor) 80 mg BEDTIME ORAL 11/15/19 21:00 12/15/19 20:59 11/15/19 20:58 Clopidogrel Bisulfate (Plavix) 75 mg DAILY ORAL 11/15/19 09:00 12/15/19 08:59 11/16/19 09:15 Enalaprilat (Vasotec) 2.5 mg EVERY 4 HOURS PRN IV sbp more than 200 11/15/19 08:15 12/15/19 08:14 Gabapentin (Neurontin) 600 mg THREE TIMES A DAY ORAL 11/15/19 09:00 12/15/19 08:59 11/16/19 09:15 Heparin Sodium (Porcine) (Heparin 5000 units/ml) 5,000 units EVERY 12 HOURS SUBQ 11/15/19 09:30 12/15/19 09:29 11/16/19 09:23 Hydralazine HCl (Apresoline) 20 mg Q4H PRN IV sbp more than 160 11/15/19 08:15 12/15/19 08:14 11/15/19 21:01 Hydrochlorothiazide (Hydrodiuril) 25 mg DAILY ORAL 11/15/19 09:00 12/15/19 08:59 11/16/19 09:15 Ibuprofen (Motrin) 600 mg Q4H PRN ORAL Pain Scale (3-5) 11/15/19 13:00 12/15/19 12:59 11/16/19 05:27 Labetalol HCl (Normodyne) 20 mg EVERY HOUR PRN IV sbo more than 180 11/15/19 08:15 12/15/19 08:14 Letrozole (Femara) 2.5 mg DAILY ORAL 11/15/19 09:00 11/20/19 08:59 11/16/19 09:14 Losartan Potassium (Cozaar) 25 mg DAILY ORAL 11/15/19 09:00 12/15/19 08:59 11/16/19 09:14 Ondansetron HCl (Zofran ODT) 4 mg TIDPRN PRN ORAL Nausea & Vomiting 11/15/19 00:45 12/15/19 00:44 Pantoprazole (Protonix) 40 mg DAILY ORAL 11/15/19 09:00 12/15/19 08:59 11/16/19 09:15 Potassium Chloride (K-Dur) 40 meq Q8H ORAL 11/16/19 09:00 11/16/19 17:01 11/16/19 09:15 Sumatriptan Succinate (Imitrex) 100 mg DAILYPRN PRN ORAL For MIGRAINE 11/15/19 14:15 12/15/19 14:14 11/16/19 10:23 Isael Mack MD Nov 16, 2019 11:22
--- NOTE | 2019-11-16 18:55 | Internal Med Progress Note ---
Subjective Date of Service: Nov 16, 2019 Physician Name Brennen Dunn Attending Physician Jame North MD Current Medications Medications (Trade) Dose Ordered Sig/Gracie Route PRN Reason Start Time Stop Time Status Last Admin Dose Admin Acetaminophen/ Hydrocodone Bitart ([place] 10/325) 1 tab Q8H PRN ORAL Pain Scale (6-10) 11/15/19 13:15 11/22/19 00:44 11/16/19 00:26 Aspirin (ASA) 81 mg DAILY ORAL 11/15/19 09:00 12/15/19 08:59 11/16/19 09:15 Atorvastatin Calcium (Lipitor) 80 mg BEDTIME ORAL 11/15/19 21:00 12/15/19 20:59 11/15/19 20:58 Baclofen (Lioresal) 10 mg THREE TIMES A DAY ORAL 11/16/19 18:00 12/16/19 17:59 11/16/19 17:27 Clopidogrel Bisulfate (Plavix) 75 mg DAILY ORAL 11/15/19 09:00 12/15/19 08:59 11/16/19 09:15 Enalaprilat (Vasotec) 2.5 mg EVERY 4 HOURS PRN IV sbp more than 200 11/15/19 08:15 12/15/19 08:14 Gabapentin (Neurontin) 600 mg THREE TIMES A DAY ORAL 11/15/19 09:00 12/15/19 08:59 11/16/19 17:26 Heparin Sodium (Porcine) (Heparin 5000 units/ml) 5,000 units EVERY 12 HOURS SUBQ 11/15/19 09:30 12/15/19 09:29 11/16/19 09:23 Hydralazine HCl (Apresoline) 20 mg Q4H PRN IV sbp more than 160 11/15/19 08:15 12/15/19 08:14 11/15/19 21:01 Hydrochlorothiazide (Hydrodiuril) 25 mg DAILY ORAL 11/15/19 09:00 12/15/19 08:59 11/16/19 09:15 Ibuprofen (Motrin) 600 mg Q4H PRN ORAL Pain Scale (3-5) 11/15/19 13:00 12/15/19 12:59 11/16/19 05:27 Labetalol HCl (Normodyne) 20 mg EVERY HOUR PRN IV sbo more than 180 11/15/19 08:15 12/15/19 08:14 Letrozole (Femara) 2.5 mg DAILY ORAL 11/15/19 09:00 11/20/19 08:59 11/16/19 09:14 Losartan Potassium (Cozaar) 25 mg DAILY ORAL 11/15/19 09:00 12/15/19 08:59 11/16/19 09:14 Nicotine (Nicoderm) 1 patch Q24H TDERMAL 11/16/19 17:00 12/16/19 16:59 11/16/19 17:27 Ondansetron HCl (Zofran ODT) 4 mg TIDPRN PRN ORAL Nausea & Vomiting 11/15/19 00:45 12/15/19 00:44 Pantoprazole (Protonix) 40 mg DAILY ORAL 11/15/19 09:00 12/15/19 08:59 11/16/19 09:15 Sumatriptan Succinate (Imitrex) 100 mg DAILYPRN PRN ORAL For MIGRAINE 11/15/19 14:15 12/15/19 14:14 11/16/19 10:23 Allergies: Coded Allergies: METRONIDAZOLE (Verified Allergy, Unknown, 11/09/19) ROS Limited/Unobtainable: No Constitutional: Reports: no symptoms HEENT: Reports: no symptoms Cardiovascular: Reports: no symptoms Respiratory: Reports: no symptoms Gastrointestinal/Abdominal: Reports: no symptoms Genitourinary: Reports: no symptoms Neurologic/Psychiatric: Reports: no symptoms Subjective 54 YO F admitted with slurred speech and right hemiplegia. Now subacute cerebral vascular accident. Cover for Int Hal-Dr North Objective Last Vital Signs Date Time Temp Pulse Resp B/P (MAP) Pulse Ox O2 Delivery O2 Flow Rate FiO2 11/16/19 16:00 98.2 97 16 133/95 (108) 97 11/16/19 09:00 Room Air Laboratory Tests Test 11/16/19 06:10 White Blood Count 10.7 K/UL (4.8-10.8) Red Blood Count 4.88 M/UL (4.20-5.40) Hemoglobin 15.0 G/DL (12.0-16.0) Hematocrit 43.9 % (37.0-47.0) Mean Corpuscular Volume 90 FL (80-99) Mean Corpuscular Hemoglobin 30.8 PG (27.0-31.0) Mean Corpuscular Hemoglobin Concent 34.2 G/DL (32.0-36.0) Red Cell Distribution Width 12.1 % (11.6-14.8) Platelet Count 377 K/UL (150-450) Mean Platelet Volume 7.0 FL (6.5-10.1) Neutrophils (%) (Auto) 65.2 % (45.0-75.0) Lymphocytes (%) (Auto) 21.9 % (20.0-45.0) Monocytes (%) (Auto) 10.7 % (1.0-10.0) H Eosinophils (%) (Auto) 0.5 % (0.0-3.0) Basophils (%) (Auto) 1.7 % (0.0-2.0) Sodium Level 134 MMOL/L (136-145) L Potassium Level 2.7 MMOL/L (3.5-5.1) *L Chloride Level 96 MMOL/L (98-107) L Carbon Dioxide Level 30 MMOL/L (21-32) Anion Gap 10 mmol/L (5-15) Blood Urea Nitrogen 11 mg/dL (7-18) Creatinine 0.8 MG/DL (0.55-1.30) Estimat Glomerular Filtration Rate > 60 mL/min (>60) Glucose Level 138 MG/DL (74-106) H Calcium Level 9.4 MG/DL (8.5-10.1) Microbiology Date/Time Source Procedure Growth Status 11/15/19 00:00 Rectum Received Intake and Output 11/15/19 11/16/19 19:00 07:00 Intake Total 600 ml 240 ml Balance 600 ml 240 ml Intake Oral 600 ml 240 ml # Voids 2 2 Objective PHYSICAL EXAMINATION: GENERAL: The patient is well-developed and well-nourished slightly obese female, in no apparent distress. HEENT: Eyes, pupils are equal and responsive to light and accommodation. Extraocular movements are intact. NECK: Supple without lymphadenopathy. CHEST: Lungs are clear to auscultation bilaterally without wheezes or rales. CARDIOVASCULAR: Regular rhythm and rate. S1, S2. No murmurs, rubs, or gallops. ABDOMEN: Soft, nontender, nondistended. Positive bowel sounds. No evidence of hepatosplenomegaly. Currently, no rebound or guarding noted. EXTREMITIES: Negative for clubbing, cyanosis, edema. NEUROLOGICALLY: Cranial nerves II through XII are grossly intact without focal deficits. Motor strength is 5/5 bilaterally. Deep tendon reflexes are 2+ plantar. Assessment/Plan Assessment/Plan ASSESSMENT: This is a 54-year-old female: 1. Dysarthria. 2. Right hemiplegia. 3. Cerebrovascular accident. 4. Hypertension. 5. Hypercholesterolemia. TREATMENT: 1. Dysarthria/right hemiplegia/cerebrovascular accident. A Neurology consultation has been obtained with Dr. Sims . An MRI of the brain is pending. A CT scan at [facility] revealed subacute left basal ganglia cerebrovascular accident. We will follow recommendations of Neurology. 2. Hypertension. Continue hydrochlorothiazide and losartan as above. 3. Hypercholesterolemia. Continue atorvastatin as above. Brennen Dunn MD Nov 16, 2019 18:55
--- NOTE | 2019-11-16 19:39 | NUR ---
HAND-OFF: Report given to Laura/RN, Patient is in stable condition, Endorsed plan of care.
--- NOTE | 2019-11-16 19:49 | NUR ---
NURSE NOTES: Received report from JEFF Durbin. Patient is in bed, awake and responsive. Breathing regular and unlabored with no s/s of SOB noted at this time. Patient is A/O x4. Patient's IV is patent, intact and saline locked. Patient denies any pain or discomfort at this time. Bed is in lowest position, breaks engaged, side-rails up x3, and call light is within reach at all times. All needs are attended to, will continue to monitor.
[2019-11-16] MEDS: Atorvastatin 80mg tab ORAL SCH (20:45)
[2019-11-17] VITALS: BP 142/83
--- NOTE | 2019-11-17 02:15 | Consultation ---
DATE OF CONSULTATION: 11/16/2019 NEUROLOGIC CONSULTATION CONSULTING PHYSICIAN: Andrez Sims M.D. CHIEF COMPLAINT: This is a 54-year-old right-handed woman who had a previous stroke 2 to 3 years ago, admitted at [facility] with left-sided weakness, hyperlipidemia for 6 to 7 years, occasional hypertension for several years, and a smoking history of [id number], still smoking. The patient was admitted with a history of slurred speech beginning around 11/14/2019. The patient around 11/11/2019 began having a generalized headache, which was severe, i.e., 10/10 without nausea or vomiting and was throbbing. She did not have headaches like this before. She also had a soreness in the back of the neck. There is no weakness at that time or dysarthria. She denied any tremors or shakes or paresthesias or dysesthesias. She may have had diplopia or just blurred vision. The patient was admitted on 11/11/2019 through 11/12/2019 for a transient ischemic attack. She states she had an MRI scan of the brain and a CT scan at [facility]. The patient was discharged probably on medication. On 11/13/2019, the patient began slurred speech. She then developed some right-sided weakness. She went to the [facility] emergency room. Initial CT scan of the brain revealed a left basal ganglia hypodensity consistent with subacute stroke. She had an angiogram of the head at [facility], which was allegedly normal. The patient was then transferred to [facility] on 11/14/2019 because of insurance purposes. The patient states that she was "talking gibberish," and she also did not understand other people's speech. The patient before the stroke was taking aspirin. She denies any chest pain. She may have had palpitations in the past and there is no shortness of breath. The patient also complained of some dizzy spells with moving in the environment. She denies any loss of bowel or bladder function. She drinks 1 bottle of wine every other day. The patient after has been brought here had a CBC, which was basically normal. Chemistries were normal except for low potassium today with elevation of AST of 48. Glucose was normal initially, but today it is 138. She had a noninvasive cardiovascular evaluation with Doppler and duplex scan of her neck arteries revealing 10 to 20% stenosis in the carotid bulb bilaterally in the internal carotid artery. Subclavian vertebral arteries were patent. The patient had a 2D echocardiogram on 11/15/2019. There were some mild abnormalities including mitral annulus aortic root calcification, focal aortic valve sclerosis. Ejection fraction was 60%. She had mild left ventricular diastolic dysfunction grade 1. The peak right ventricular systolic pressure was 16. See the rest of the report. The patient was placed on nicotine patch, baclofen, atorvastatin, sumatriptan, or Imitrex 100 mg, hydrocodone, aspirin 81 mg, Plavix 5 mg, gabapentin 600 mg t.i.d., hydrochlorothiazide 25 mg, labetalol hydrochloride , and ondansetron for nausea and vomiting.Brother with "mental issues." PAST MEDICAL HISTORY/PAST MEDICAL ILLNESSES: 1. See above. 2. 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 3. Sciatica of lumbar spine. ALLERGIES: She is allergic to Flagyl. SOCIAL HISTORY: She is a . Lives alone. FAMILY HISTORY: Mother of complications of thyroid disease. Father is in good health. She has a sister in good health. MEDICATIONS: She is on 25 mg prior to admission, baclofen 10 mg b.i.d., gabapentin 600 mg t.i.d., hydrochlorothiazide 20 mg daily, Femara 2.5 mg daily, losartan 25 mg daily, and pantoprazole 40 mg daily. REVIEW OF SYSTEMS: CONSTITUTIONAL: The patient's appetite is decreased. She has lost about 15 pounds. She now weighs about 210 pounds and 5 feet 2 inches tall. HEENT: Essentially negative. NECK: Normal except for the neck as above. No previous history of neck pain. LUNGS: Denies shortness of breath, chronic cough, coughing up blood, or wheezing. ABDOMEN: no nausea, vomiting, abdominal pain. GENITOURINARY: No history of pyuria, dysuria, frequency, or hesitancy. PHYSICAL EXAMINATION: GENERAL: She is a well developed, obese woman, lying in the bed, in no acute distress. VITAL SIGNS: Blood pressure is 133/95, pulse is 88 and regular, respirations 16, and temperature is 98.2 degrees. HEENT: Head examination wears upper dentures. NECK: Supple. Carotids are +2 without bruits. LUNGS: Clear to auscultation. CARDIOVASCULAR: PMI not felt. JVP not distended. The patient had a normal S1 and S2 is physiologically split. There is an S4 at the apex. No murmurs or rubs noted. ABDOMEN: Obese. Bowel sounds are intact. No masses, organomegaly, or tenderness elicited. EXTREMITIES: She has surgical scars on her knees. Peripheral pulses are +2. NEUROLOGIC EXAMINATION: MENTAL STATUS: Judgment, she reported a letter in the mailbox. Affect, affect appropriate. Memory, past memory is intact to her birthday. Immediate recall 3/3 objects. Recent recall 0/3 at 5 minutes. Intellect not tested. Orientation - time, she knows it is 11/15/2019. Place, she knew she was at [facility], did not know the floor number. Person, she is oriented to person. Language function, spoken speech was fluent without paraphasias. There was no right-left confusion or finger agnosia. She could spell world backwards and forwards. CRANIAL NERVE EXAMINATION: CRANIAL NERVE II: Visual mishra are intact to confrontation. Fundi were not well visualized. CRANIAL NERVES III, IV, AND : Extraocular motility is full. Pupils are approximately 4 mm, round, light reactive. CRANIAL NERVE V: Facial and corneal sensation is intact. CRANIAL NERVE VII: Facial strength is 5/5 bilaterally. CRANIAL NERVE VIII: Auditory acuity was intact to whisper bilaterally. CRANIAL NERVES IX AND X: Gag is decreased bilaterally. CRANIAL NERVE XI: Sternocleidomastoid strength is 5/5. CRANIAL NERVE XII: Tongue protrudes in the midline without fasciculations or atrophy. MUSCLE EXAMINATION: Muscle bulk and strength are normal. Strength is 5/5 proximally and distally REFLEXES: +2 in the upper extremities at the knees with crossed adductor response. Ankle reflexes are +2, toes with downgoing on testing for Babinski response. COORDINATION: Bzzzlc-wo-klan, valy-nz-rgmp testing, rapid alternating movements are intact. GAIT AND STATION: Not tested. SENSORY: Pinprick, proprioception, and fine touch were normal. IMPRESSION: The patient has subacute stroke in the basal ganglia according to the CT scan from [facility]. She did have a CT angiogram of the brain, which was negative and a Duplex scan of the extracranial arteries was normal. The patient probably has small vessel disease and should be on Plavix 75 mg and aspirin 325 mg for at least 3 months. The Plavix can be discontinued. She can get physical therapy. Blood pressure can be treated at this point. The patient still has headache. I am going to try her on some Topamax 25 mg for headaches. The headache is migraine-like, fairly constant, although she does not look like she is in much pain. PLAN: 1. As above. 2. Topamax 25 mg at night. 3. Physical therapy as necessary. 4. She will need a transthoracic echocardiogram. 5. The patient is not likely to have an embolic stroke; however, Thank you for this interesting case. Andrez Sims MD DR: RODRÍGUEZ JOB#: [id number] CC: JOHAN
[2019-11-17 04:00] VITALS: BP 142/87
[2019-11-17] MEDS: HYDROcodone/Acetamin 10/325 tab ORAL PRN (06:14)
--- NOTE | 2019-11-17 07:19 | NUR ---
HAND-OFF: Report given to JEFF Durbin. Patient is in stable condition, plan of care endorsed.
--- NOTE | 2019-11-17 07:21 | NUR ---
NURSE NOTES: Received report from Laura/RN, Patient is in bed lying semi-cat's, resting comfortably. On room air, no acute distress/SOB noted. Breathing regular and unlabored. A/O x4, Able to make needs known. Denies pain or discomfort at this time. IV on right AC patent, and saline lock. Bed in low position and locked, Side-rails up x2. Call light and personal belonging within reach, Encouraged to use call light when needed. Will continue plan of care.
[2019-11-17 08:00] VITALS: BP 133/81
[2019-11-17] MEDS: Losartan 25mg tab ORAL SCH (08:35)
[2019-11-17] MEDS: Aspirin Baby 81mg ORAL SCH (08:36)
[2019-11-17] MEDS: SUMAtriptan 100mg tab ORAL PRN (08:38)
[2019-11-17] MEDS: Heparin 5000 units/ml inj SUBQ SCH ×2 (08:41→21:03)
--- NOTE | 2019-11-17 08:42 | NUR ---
CASE MANAGEMENT: INITIAL REVIEW 54YR OLD FEMALE FROM : SLURRED SPEECH; RIGHT SIDE WEAKNESS; DYSARTHRIA SI: CVA . RIGHT HEMIPLEGIA . CAROTID BULB BILATERALLY 99.0 85 18 162/99 97% ON RA K+2.9 IS: HYDRODIURIL PO QD IV HYDRALAZINE Q4/PRN COZAAR M PO QD HEPARIN SQ BID PROTONIX PO QD ASA PO QD GABAPENTIN PO QD \: 2E TELE UNIT DCP: HOME WHEN MEDICALLY STABLE
[2019-11-17 09:59] LABS: ANION GAP 6 mmol/L (5-15); BLOOD UREA NITROGEN 11 mg/dL (7-18); CALCIUM 9.6 MG/DL (8.5-10.1); CARBON DIOXIDE 31 MMOL/L (21-32); CHLORIDE 97 MMOL/L (98-107); POTASSIUM 3.7 MMOL/L (3.5-5.1); SODIUM 134 MMOL/L (136-145)
--- NOTE | 2019-11-17 10:50 | Pulmonology Progress Note ---
Assessment/Plan Problems: (1) Acute CVA (cerebrovascular accident) (2) History of hypertension (3) Migraine headache (4) History of CVA (cerebrovascular accident) Assessment/Plan pt/ot Neuro consult appreciated on Topamax and Plavix titrate cardiac / hypertensive meds check electrolytes. dvt prophylaxis Subjective ROS Limited/Unobtainable: No Constitutional: Reports: no symptoms HEENT: Repors: no symptoms Respiratory: Reports: no symptoms Allergies: Coded Allergies: METRONIDAZOLE (Verified Allergy, Unknown, 11/09/19) Objective Last 24 Hour Vital Signs Date Time Temp Pulse Resp B/P (MAP) Pulse Ox O2 Delivery O2 Flow Rate FiO2 11/17/19 09:00 Room Air 11/17/19 08:35 133/81 11/17/19 08:00 98.1 93 18 133/81 (98) 97 11/17/19 08:00 87 11/17/19 04:00 97.7 81 18 142/87 (105) 96 11/17/19 04:00 93 11/17/19 00:00 98.0 106 20 142/83 (102) 94 11/17/19 00:00 93 11/16/19 21:00 Room Air 11/16/19 20:00 108 11/16/19 20:00 97.9 107 20 136/95 (109) 94 11/16/19 16:00 98.2 97 16 133/95 (108) 97 11/16/19 16:00 88 11/16/19 12:00 98.1 111 15 139/76 (97) 97 11/16/19 12:00 111 Intake and Output 11/16/19 11/17/19 19:00 07:00 Intake Total 320 ml Balance 320 ml Intake Oral 320 ml # Voids 1 General Appearance: WD/WN HEENT: normocephalic, atraumatic Respiratory/Chest: chest wall non-tender, lungs clear Breasts: no masses Cardiovascular: normal peripheral pulses Abdomen: normal bowel sounds, soft, non tender Neurologic/Psychiatric: awning spreader II-XII grossly normal Lymphatic: no neck adenopathy Microbiology Date/Time Source Procedure Growth Status 11/15/19 00:00 Nasal Nares Left MRSA Culture - Final NO METHICILLIN RESISTANT STAPH AUREUS... Complete 11/15/19 00:00 Rectum - Final NO CARBAPENEM-RESISTANT ENTEROBACTERI... Complete 11/15/19 00:00 Rectum VRE Culture - Final NO VANCOMYCIN RESISTANT ENTEROCOCCUS ... Complete Laboratory Tests 11/17/19 09:30: Sodium Level 134L, Potassium Level 3.7, Chloride Level 97L, Carbon Dioxide Level 31, Anion Gap 6, Blood Urea Nitrogen 11, Creatinine 1.0, Estimat Glomerular Filtration Rate > 60, Glucose Level 119H, Calcium Level 9.6, Magnesium Level 1.8 Current Medications Medications (Trade) Dose Ordered Sig/Gracie Route PRN Reason Start Time Stop Time Status Last Admin Dose Admin Acetaminophen/ Hydrocodone Bitart ([place] 10/325) 1 tab Q8H PRN ORAL Pain Scale (6-10) 11/15/19 13:15 11/22/19 00:44 11/17/19 06:14 Aspirin (ASA) 81 mg DAILY ORAL 11/15/19 09:00 12/15/19 08:59 11/17/19 08:36 Atorvastatin Calcium (Lipitor) 80 mg BEDTIME ORAL 11/15/19 21:00 12/15/19 20:59 11/16/19 20:45 Baclofen (Lioresal) 10 mg THREE TIMES A DAY ORAL 11/16/19 18:00 12/16/19 17:59 11/17/19 08:36 Clopidogrel Bisulfate (Plavix) 75 mg DAILY ORAL 11/15/19 09:00 12/15/19 08:59 11/17/19 08:36 Enalaprilat (Vasotec) 2.5 mg EVERY 4 HOURS PRN IV sbp more than 200 11/15/19 08:15 12/15/19 08:14 Gabapentin (Neurontin) 600 mg THREE TIMES A DAY ORAL 11/15/19 09:00 12/15/19 08:59 11/17/19 08:35 Heparin Sodium (Porcine) (Heparin 5000 units/ml) 5,000 units EVERY 12 HOURS SUBQ 11/15/19 09:30 12/15/19 09:29 11/17/19 08:41 Hydralazine HCl (Apresoline) 20 mg Q4H PRN IV sbp more than 160 11/15/19 08:15 12/15/19 08:14 11/15/19 21:01 Hydrochlorothiazide (Hydrodiuril) 25 mg DAILY ORAL 11/15/19 09:00 12/15/19 08:59 11/17/19 08:36 Ibuprofen (Motrin) 600 mg Q4H PRN ORAL Pain Scale (3-5) 11/15/19 13:00 12/15/19 12:59 11/16/19 21:32 Labetalol HCl (Normodyne) 20 mg EVERY HOUR PRN IV sbo more than 180 11/15/19 08:15 12/15/19 08:14 Letrozole (Femara) 2.5 mg DAILY ORAL 11/15/19 09:00 11/20/19 08:59 11/17/19 08:36 Losartan Potassium (Cozaar) 25 mg DAILY ORAL 11/15/19 09:00 12/15/19 08:59 11/17/19 08:35 Nicotine (Nicoderm) 1 patch Q24H TDERMAL 11/16/19 17:00 12/16/19 16:59 11/16/19 17:27 Ondansetron HCl (Zofran ODT) 4 mg TIDPRN PRN ORAL Nausea & Vomiting 11/15/19 00:45 12/15/19 00:44 Pantoprazole (Protonix) 40 mg DAILY ORAL 11/15/19 09:00 12/15/19 08:59 11/17/19 08:36 Sumatriptan Succinate (Imitrex) 100 mg DAILYPRN PRN ORAL For MIGRAINE 11/15/19 14:15 12/15/19 14:14 11/17/19 08:38 Isael Mack MD Nov 17, 2019 10:50
--- NOTE | 2019-11-17 10:57 | NUR ---
JEFF ROWLAND ATTEMPTED TO HAVE DR. ESPINOZA CALL SO SHE CAN INFORM THE DOCTOR THAT THE MRI SCAN CAN NOT BE DONE DUE TO THE INCOMPATIBILITY OF THE ZIO HOLTER MONITOR WITH THE MRI SCANNER. POP 09:30
[2019-11-17 12:00] VITALS: BP 146/94
--- NOTE | 2019-11-17 14:42 | Cardiology Report ---
APPROVED REPORT EXAM: Two-dimensional and M-mode echocardiogram with Doppler and color Doppler. INDICATION CVA/TIA M-Mode DIMENSIONS IVSd1.0 (0.7-1.1cm)Left Atrium (MM)3.0 (1.6-4.0cm) LVDd3.6 (3.5-5.6cm)Aortic Root2.9 (2.0-3.7cm) PWd1.0 (0.7-1.1cm)Aortic Cusp Exc.1.8 (1.5-2.0cm) IVSs1.8 cmEPSS1.0 (>1.0cm) LVDs1.7 (2.5-4.0cm) PWs1.5 cm <Conclusion> Normal left ventricular chamber size, systolic function and wall motion. Left ventricular ejection fraction estimated to be 60 %. No evidence of left ventricular hypertrophy. No evidence of pericardial effusion. All other cardiac chamber sizes are within normal limits. Focal aortic valve sclerosis with adequate cusp excursion. Thickened mitral valve leaflets with normal excursion. Mitral annulus and aortic root calcification. Pulmonic valve not well visualized. Normal tricuspid valve structure. IVC is normal in size with physiological collapse. A color flow and spectral Doppler study was performed and revealed: No aortic regurgitation. No mitral regurgitation. Mitral diastolic velocities suggest mild left ventricular diastolic dysfunction (Grade I). Trace tricuspid regurgitation. Tricuspid systolic velocities suggests peak right ventricular systolic pressure of 16 mmHg. No pulmonic regurgitation present.
[2019-11-17 16:00] VITALS: BP 132/76
--- NOTE | 2019-11-17 17:04 | Internal Med Progress Note ---
Subjective Date of Service: Nov 17, 2019 Physician Name Brennen Dunn Attending Physician Jame North MD Current Medications Medications (Trade) Dose Ordered Sig/Gracie Route PRN Reason Start Time Stop Time Status Last Admin Dose Admin Acetaminophen/ Hydrocodone Bitart ([place] 10/325) 1 tab Q8H PRN ORAL Pain Scale (6-10) 11/15/19 13:15 11/22/19 00:44 11/17/19 06:14 Aspirin (ASA) 81 mg DAILY ORAL 11/15/19 09:00 12/15/19 08:59 11/17/19 08:36 Atorvastatin Calcium (Lipitor) 80 mg BEDTIME ORAL 11/15/19 21:00 12/15/19 20:59 11/16/19 20:45 Baclofen (Lioresal) 10 mg THREE TIMES A DAY ORAL 11/16/19 18:00 12/16/19 17:59 11/17/19 13:15 Clopidogrel Bisulfate (Plavix) 75 mg DAILY ORAL 11/15/19 09:00 12/15/19 08:59 11/17/19 08:36 Enalaprilat (Vasotec) 2.5 mg EVERY 4 HOURS PRN IV sbp more than 200 11/15/19 08:15 12/15/19 08:14 Gabapentin (Neurontin) 600 mg THREE TIMES A DAY ORAL 11/15/19 09:00 12/15/19 08:59 11/17/19 13:15 Heparin Sodium (Porcine) (Heparin 5000 units/ml) 5,000 units EVERY 12 HOURS SUBQ 11/15/19 09:30 12/15/19 09:29 11/17/19 08:41 Hydralazine HCl (Apresoline) 20 mg Q4H PRN IV sbp more than 160 11/15/19 08:15 12/15/19 08:14 11/15/19 21:01 Hydrochlorothiazide (Hydrodiuril) 25 mg DAILY ORAL 11/15/19 09:00 12/15/19 08:59 11/17/19 08:36 Ibuprofen (Motrin) 600 mg Q4H PRN ORAL Pain Scale (3-5) 11/15/19 13:00 12/15/19 12:59 11/16/19 21:32 Labetalol HCl (Normodyne) 20 mg EVERY HOUR PRN IV sbo more than 180 11/15/19 08:15 12/15/19 08:14 Letrozole (Femara) 2.5 mg DAILY ORAL 11/15/19 09:00 11/20/19 08:59 11/17/19 08:36 Losartan Potassium (Cozaar) 25 mg DAILY ORAL 11/15/19 09:00 12/15/19 08:59 11/17/19 08:35 Nicotine (Nicoderm) 1 patch Q24H TDERMAL 11/16/19 17:00 12/16/19 16:59 11/16/19 17:27 Ondansetron HCl (Zofran ODT) 4 mg TIDPRN PRN ORAL Nausea & Vomiting 11/15/19 00:45 12/15/19 00:44 Pantoprazole (Protonix) 40 mg DAILY ORAL 11/15/19 09:00 12/15/19 08:59 11/17/19 08:36 Sumatriptan Succinate (Imitrex) 100 mg DAILYPRN PRN ORAL For MIGRAINE 11/15/19 14:15 12/15/19 14:14 11/17/19 08:38 Allergies: Coded Allergies: METRONIDAZOLE (Verified Allergy, Unknown, 11/09/19) ROS Limited/Unobtainable: No Constitutional: Reports: no symptoms HEENT: Reports: no symptoms Cardiovascular: Reports: no symptoms Respiratory: Reports: no symptoms Gastrointestinal/Abdominal: Reports: no symptoms Genitourinary: Reports: no symptoms Neurologic/Psychiatric: Reports: no symptoms Subjective 54 YO F admitted with slurred speech and right hemiplegia. Now subacute cerebral vascular accident. Cover for Int Jovon North Objective Last Vital Signs Date Time Temp Pulse Resp B/P (MAP) Pulse Ox O2 Delivery O2 Flow Rate FiO2 11/17/19 16:00 97.9 86 18 132/76 (94) 98 11/17/19 09:00 Room Air Laboratory Tests Test 11/17/19 09:30 Sodium Level 134 MMOL/L (136-145) L Potassium Level 3.7 MMOL/L (3.5-5.1) Chloride Level 97 MMOL/L (98-107) L Carbon Dioxide Level 31 MMOL/L (21-32) Anion Gap 6 mmol/L (5-15) Blood Urea Nitrogen 11 mg/dL (7-18) Creatinine 1.0 MG/DL (0.55-1.30) Estimat Glomerular Filtration Rate > 60 mL/min (>60) Glucose Level 119 MG/DL (74-106) H Calcium Level 9.6 MG/DL (8.5-10.1) Magnesium Level 1.8 MG/DL (1.8-2.4) Microbiology Date/Time Source Procedure Growth Status 11/15/19 00:00 Nasal Nares Left MRSA Culture - Final NO METHICILLIN RESISTANT STAPH AUREUS... Complete 11/15/19 00:00 Rectum - Final NO CARBAPENEM-RESISTANT ENTEROBACTERI... Complete 11/15/19 00:00 Rectum VRE Culture - Final NO VANCOMYCIN RESISTANT ENTEROCOCCUS ... Complete Intake and Output 11/16/19 11/17/19 19:00 07:00 Intake Total 320 ml Balance 320 ml Intake Oral 320 ml # Voids 1 Objective PHYSICAL EXAMINATION: GENERAL: The patient is well-developed and well-nourished slightly obese female, in no apparent distress. HEENT: Eyes, pupils are equal and responsive to light and accommodation. Extraocular movements are intact. NECK: Supple without lymphadenopathy. CHEST: Lungs are clear to auscultation bilaterally without wheezes or rales. CARDIOVASCULAR: Regular rhythm and rate. S1, S2. No murmurs, rubs, or gallops. ABDOMEN: Soft, nontender, nondistended. Positive bowel sounds. No evidence of hepatosplenomegaly. Currently, no rebound or guarding noted. EXTREMITIES: Negative for clubbing, cyanosis, edema. NEUROLOGICALLY: Cranial nerves II through XII are grossly intact without focal deficits. Motor strength is 5/5 bilaterally. Deep tendon reflexes are 2+ plantar. Assessment/Plan Assessment/Plan ASSESSMENT: This is a 54-year-old female: 1. Dysarthria. 2. Right hemiplegia. 3. Cerebrovascular accident. 4. Hypertension. 5. Hypercholesterolemia. TREATMENT: 1. Dysarthria/right hemiplegia/cerebrovascular accident. A Neurology consultation has been obtained with Dr. Sims . An MRI of the brain was cancelled due to continuous monitoring analyst. A CT scan at [facility] revealed subacute left basal ganglia cerebrovascular accident. We will follow recommendations of Neurology. 2. Hypertension. Continue hydrochlorothiazide and losartan as above. 3. Hypercholesterolemia. Continue atorvastatin as above. 4. Discharge planning: home with home health/PT Brennen Dunn MD Nov 17, 2019 17:04
--- NOTE | 2019-11-17 19:20 | NUR ---
HAND-OFF: Report given to Laura/RN, Patient is in stable condition, Endorsed plan of care.
--- NOTE | 2019-11-17 19:36 | NUR ---
NURSE NOTES: Received report from JEFF Durbin. Patient is in bed, awake and responsive. A/O x4. Breathing regular and unlabored with no s/s of SOB noted at this time. Patient denies any pain or discomfort at this time. Patient's IV is intact, patent, and saline locked. Bed is in lowest position, breaks engaged, and call light is within reach at all times. All needs are attended to, will continue to monitor.
[2019-11-17 20:00] VITALS: BP 134/85
--- NOTE | 2019-11-17 20:17 | Cardiology Progress Note ---
Assessment/Plan Assessment/Plan [id number] full note dictated dc hctz may consider endocrine rae in light of hypokalemia and htn although likey related to hctz will dc for nwo correct ka dn mg deficit repeat ekg ziopatch in lplace for anotehr 10 dya keep on tele neuro rae per pmd Objective Last 24 Hour Vital Signs Date Time Temp Pulse Resp B/P (MAP) Pulse Ox O2 Delivery O2 Flow Rate FiO2 11/17/19 16:00 97.9 86 18 132/76 (94) 98 11/17/19 16:00 98 11/17/19 12:00 80 11/17/19 12:00 98.4 82 20 146/94 (111) 98 11/17/19 09:00 Room Air 11/17/19 08:35 133/81 11/17/19 08:00 98.1 93 18 133/81 (98) 97 11/17/19 08:00 87 11/17/19 04:00 97.7 81 18 142/87 (105) 96 11/17/19 04:00 93 11/17/19 00:00 98.0 106 20 142/83 (102) 94 11/17/19 00:00 93 11/16/19 21:00 Room Air Intake and Output 11/16/19 11/17/19 19:00 07:00 Intake Total 320 ml Balance 320 ml Intake Oral 320 ml # Voids 1 Laboratory Tests Test 11/17/19 09:30 Sodium Level 134 MMOL/L (136-145) L Potassium Level 3.7 MMOL/L (3.5-5.1) Chloride Level 97 MMOL/L (98-107) L Carbon Dioxide Level 31 MMOL/L (21-32) Anion Gap 6 mmol/L (5-15) Blood Urea Nitrogen 11 mg/dL (7-18) Creatinine 1.0 MG/DL (0.55-1.30) Estimat Glomerular Filtration Rate > 60 mL/min (>60) Glucose Level 119 MG/DL (74-106) H Calcium Level 9.6 MG/DL (8.5-10.1) Magnesium Level 1.8 MG/DL (1.8-2.4) Microbiology Date/Time Source Procedure Growth Status 11/15/19 00:00 Nasal Nares Left MRSA Culture - Final NO METHICILLIN RESISTANT STAPH AUREUS... Complete 11/15/19 00:00 Rectum - Final NO CARBAPENEM-RESISTANT ENTEROBACTERI... Complete 11/15/19 00:00 Rectum VRE Culture - Final NO VANCOMYCIN RESISTANT ENTEROCOCCUS ... Complete Cole Isaac MD Nov 17, 2019 20:17
[2019-11-17] MEDS: Topiramate 25mg tab ORAL SCH (21:02)
[2019-11-17] MEDS: Atorvastatin 80mg tab ORAL SCH (21:02)
[2019-11-18] VITALS: BP 140/78
--- NOTE | 2019-11-18 02:30 | Progress Note ---
DATE: 11/17/2019 NOTE: UNCLEAR AUDIO SUBJECTIVE: The patient is still complaining of a bad headache, but she is eating okay. There is no new weakness, numbness, seizures, or blackouts. OBJECTIVE: VITAL SIGNS: Blood pressure is 133/76, pulse is 86 and regular, temperature is 97.9 degrees. MENTAL STATUS: Her mental status is unchanged. Her speech is normal. Her language is normal. CRANIAL NERVES: Cranial nerves II to XII are unchanged, basically intact. . Extraocular motility is full. MUSCLE EXAMINATION: Muscle bulk and tone are normal. Strength is 5/5 proximally and distally without pronator drift. Reflexes are +2 to 2.5 in the upper extremities, +2 in the knees, of the ankles.l COORDINATION: [id number], [id number] testing intact. IMPRESSION: The patient Topamax 25 mg for headache. . PLAN: 1. . 2. Topamax 25 mg at night. 3. . Andrez Sims MD DR: Eun JOB#: [id number] CC:
[2019-11-18] MEDS: SUMAtriptan 100mg tab ORAL PRN (03:21)
--- NOTE | 2019-11-18 03:45 | Consultation ---
DATE OF CONSULTATION: 11/17/2019 CARDIAC CONSULTATION CONSULTING PHYSICIAN: Cole Isaac M.D. REFERRING PHYSICIAN: Jame North M.D. REASON FOR REFERRAL: Stroke. HISTORY OF PRESENT ILLNESS: This is a middle-aged female who has a history of multiple medical problems as delineated below. The patient has had some symptoms ongoing for the past week or so. She initially has apparently presented to [facility] where she was diagnosed with the flu, was sent home the next day, she had more headaches and she was taken to the emergency room at [facility] where she says she was admitted and she had a workup, was diagnosed with a stroke, was discharged the next day. The records were reviewed, and the patient was diagnosed with basal ganglia stroke and intractable migraines without an aura with status migrainosus. She has chronic and intractable headaches as well as prolonged QT noted on the EKG. She had an MRI of her brain that showed a left lentiform nucleus infarct, moderate chronic microvascular ischemic changes on CT scan. CT angio showed lacunar infarction, mild plaque in the left carotid artery. The echocardiogram on the 11/11/2019 with bubble study showed ejection fraction of 66%, mild diastolic dysfunction, no significant valvular pathology was noted. Then, in either case, she was discharged the next day and she was talking and family found her to be incoherent speech, was taken to the emergency room at [facility] on the 11/14/2019 and so the patient, because of expressive aphasia, underwent evaluations, was not treated with thrombolytic therapy because of her recent stroke, and apparently 3 hours later, the symptoms resolved according to the patient. The patient was transferred with permissive hypertension on aspirin without any acute intervention, artery is patent, no tPA candidate and was noted to have some element of hyponatremia and hypokalemia and was transferred to [facility] because of insurance reasons. The patient is now being seen. She denies any chest pain or shortness of breath. No PND, no orthopnea, but she uses two pillows for comfort. There is no dizziness or lightheadedness on standing. No heart pounding or palpitations. PAST MEDICAL HISTORY: Positive for history of prior stroke several years ago and again these episodes that she calls strokes. 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 She has had a history of arthritis, back pain, breast cancer, as mentioned headaches, hypertension, hyperlipidemia, sleep apnea, and urinary tract infection. She has had selective nerve blocks performed and cervical epidural injections. ALLERGIES: She is allergic to Flagyl. SOCIAL HISTORY: She smokes one pack a day. Does not drink alcoholic beverages. No drug use. FAMILY HISTORY: Includes breast cancer in her maternal grandmother, coronary artery disease in her paternal grandfather, diabetes in her brother, hypertension in her brother and sister, lung cancer in paternal aunt, stroke in her paternal grandmother, and thyroid cancer in her mother. REVIEW OF SYSTEMS: GASTROINTESTINAL: She did have nausea and vomiting initially when she felt ill, she came to the [facility]. She says no recurrent symptoms and no diarrhea, no constipation, no bloody or black stools. GENITOURINARY: She has had some burning on urination previously. PULMONARY: Denies coughing or wheezing. CONSTITUTIONAL: Negative. NEUROLOGIC: She does have some blurred vision and double vision. She has had no spinning sensation and no balance disorder. No paralysis in arms or legs. PHYSICAL EXAMINATION: GENERAL: Shows to be overweight middle-aged female, in no respiratory distress. NECK: Supple. No jugular venous distention. No abdominojugular reflux noted. LUNGS: Clear to auscultation and percussion. CARDIAC: S1 is normal. S2 is normal. Regular rate and rhythm. No heaves, thrills, or gallops noted. ABDOMEN: Soft, nontender. Positive bowel sounds. EXTREMITIES: There is no clubbing, cyanosis, or edema. LABORATORY AND DIAGNOSTIC DATA: Laboratory values available here at [facility] include an echocardiogram that shows ejection fraction of 60% and no significant other abnormalities. Telemetry data here shows sinus rhythm, sinus tachycardia, and no episodes of atrial fibrillation documented on any of the rhythm strips available in the chart. I am not able to find an electrocardiogram to review for this hospitalization. Her laboratory values, white count is 10.7, hemoglobin 15, and platelet count 377. Sodium is 134, potassium 3.7, chloride 97, bicarbonate 31, BUN of 11, creatinine 1.0, glucose of 119, magnesium of 1.8. Triglycerides of 106, total cholesterol 157 with LDL of 73 and HDL of 43. Imaging, echocardiogram as mentioned final report shows ejection fraction of 60%, no significant valvular regurgitation, mild diastolic relaxation abnormalities, and she has had a carotid duplex that shows 10 to 20% of the carotid vertebral artery is patent. ASSESSMENT AND PLAN: 1. Expressive aphasia. 2. Recent stroke. 3. Electrolyte abnormalities including hypokalemia. 4. Hypertension. 5. Hyperlipidemia. 6. Obesity. 7. Sleep apnea. 8. History of breast cancer, on a trial. Dr. North and Dr. Mack, this patient was seen in cardiac consultation. The patient in place that was given to avoid seizures and she has another 10 days of monitoring. In the meantime, she should be monitored on telemetry so far. EKG will be ordered. Echocardiogram was unremarkable. Cardiac norton, she has no symptoms of coronary syndrome and in her blood pressure. The recommendation of neurologist at [place] for permissive hypertension up to 220 but blood pressure at the present time is 130s to 140s over 70s to 80s. Her heart rate is in the 80s and she is on aspirin and Lipitor 80 mg and she has been added on Plavix 75 mg and hydralazine p.r.n. I think because of her hypokalemia, she should be discontinued off of hydrochlorothiazide for the time being essentially in the setting of need for permissive hypertension. She can be managed with some losartan and the dose can be increased as needed. Neurology evaluation as per yourself. Cole Isaac M.D. DR: FELICITA JOB#: [id number] CC:
[2019-11-18 04:00] VITALS: BP 146/91
--- NOTE | 2019-11-18 07:36 | NUR ---
HAND-OFF: Report given to JEFF Barajas. Patient stable.
[2019-11-18 07:37] LABS: BASOPHILS % (AUTO) 1.2 % (0.0-2.0); EOSINOPHILS % (AUTO) 1.3 % (0.0-3.0); HEMATOCRIT 44.3 % (37.0-47.0); LYMPHOCYTES % (AUTO) 26.5 % (20.0-45.0); MEAN CORPUSCULAR VOLUME 91 FL (80-99); MONOCYTES % (AUTO) 8.4 % (1.0-10.0); NEUTROPHILS % (AUTO) 62.7 % (45.0-75.0); PLATELET COUNT 418 K/UL (150-450); RED BLOOD COUNT 4.86 M/UL (4.20-5.40); RED CELL DISTRIBUTION WIDTH 12.5 % (11.6-14.8); WHITE BLOOD COUNT 10.3 K/UL (4.8-10.8)
--- NOTE | 2019-11-18 07:51 | NUR ---
NURSE NOTES: Received report from JEFF Sanchez. Patient in bed resting, no active s/s cardiac, respiratory distress noticed at this time. Patient on room air, AOx4,SR with HR 90. IV on right AC 20G, asymptomatic, patent, intact. Bed in lowest position, side rails upx2, call light within reach. Will continue to monitor.
[2019-11-18 08:00] VITALS: BP 148/87
[2019-11-18 08:13] LABS: ANION GAP 8 mmol/L (5-15); BLOOD UREA NITROGEN 10 mg/dL (7-18); CALCIUM 9.8 MG/DL (8.5-10.1); CARBON DIOXIDE 31 MMOL/L (21-32); CHLORIDE 97 MMOL/L (98-107); CREATININE 0.9 MG/DL (0.55-1.30); POTASSIUM 3.5 MMOL/L (3.5-5.1); SODIUM 136 MMOL/L (136-145)
[2019-11-18] MEDS: Aspirin Baby 81mg ORAL SCH (08:59)
[2019-11-18] MEDS: Losartan 25mg tab ORAL SCH ×2 (08:59→17:31)
[2019-11-18] MEDS: Heparin 5000 units/ml inj SUBQ SCH ×2 (09:00→22:05)
--- NOTE | 2019-11-18 09:17 | NUR ---
DISCHARGE PLANNING: PATIENT HAS BEEN REFERRED TO [facility] T: [phone] WAITING FOR RESPONSE; WILL F/U
[2019-11-18] MEDS: HYDROcodone/Acetamin 10/325 tab ORAL PRN (10:59)
--- NOTE | 2019-11-18 11:00 | NUR ---
PT NOTE Attempted to see patient for PT treatment. Patient declining to participate with PT today stating "not today" due to headache, requests that therapist return tomorrow. Jenn AGUILAR notified, will follow up tomorrow.
--- NOTE | 2019-11-18 11:30 | NUR ---
RD ASSESSMENT & RECOMMENDATIONS SEE CARE ACTIVITY FOR COMPLETE ASSESSMENT DAILY ESTIMATED NEEDS: Needs based on Cardiac, 60.5kg abw 25-30 kcals/kg 6765-4269 total kcals 1-1.3 g protein/kg 61-79 g total protein 25-30 mL/kg 0899-9130 total fluid mLs NUTRITION DIAGNOSIS: Decreased sodium/fat/cholesterol intake needs R/T cardiac hx, obese status as evidenced by s/p acute CVA, w/ elev BPs, pt at 184% IBW w/ BMI of 37. CURRENT DIET:CARDIAC PO DIET RECOMMENDATIONS: Maintain CARDIAC diet/ texture per BANK CASHIER ADDITIONAL RECOMMENDATIONS: * Rec BANK CASHIER evaluation for appropriate texture: s/p acute CVA * Standing wt for accurate CBW * Check A1C : s/p CVA, not yet checked * Monitor lytes, replete as needed
[2019-11-18 12:00] VITALS: BP 130/84
--- NOTE | 2019-11-18 12:12 | NUR ---
NURSE NOTES: Dr. Sims at the nursing station, need MRI brain, MD made aware MRI was not able to take due to ZIO holter monitor, per MD call cardiology for verification. Paged Dr. Isaac for clarification.
--- NOTE | 2019-11-18 12:43 | NUR ---
NURSE NOTES: Dr. Mack at the nursing station, clarified for MRI and ZIO holter. Per , Dr. Isaac is getting clarification from manufacture.
--- NOTE | 2019-11-18 13:01 | Pulmonology Progress Note ---
Assessment/Plan Problems: (1) Acute CVA (cerebrovascular accident) (2) History of hypertension (3) Migraine headache (4) History of CVA (cerebrovascular accident) Assessment/Plan pt/ot Neuro consult appreciated on Topamax, it helped only for 12 hours and Plavix titrate cardiac / hypertensive meds check electrolytes. d/w Dr. Isaac to see if Ziopatch can be removed briefly. It can't. He is checking with the professor of anthropology dvt prophylaxis Subjective ROS Limited/Unobtainable: No Constitutional: Reports: no symptoms HEENT: Repors: no symptoms Respiratory: Reports: no symptoms Allergies: Coded Allergies: METRONIDAZOLE (Verified Allergy, Unknown, 11/09/19) Objective Last 24 Hour Vital Signs Date Time Temp Pulse Resp B/P (MAP) Pulse Ox O2 Delivery O2 Flow Rate FiO2 11/18/19 12:00 98.2 93 18 130/84 (99) 98 11/18/19 09:00 Room Air 11/18/19 08:59 148/87 11/18/19 08:00 98.1 113 18 148/87 (107) 100 11/18/19 08:00 110 11/18/19 04:00 101 11/18/19 04:00 98.0 90 20 146/91 (109) 97 11/18/19 00:00 98.1 107 20 140/78 (98) 98 11/18/19 00:00 100 11/17/19 21:00 Room Air 11/17/19 20:00 98.0 109 18 134/85 (101) 96 11/17/19 20:00 101 11/17/19 16:00 97.9 86 18 132/76 (94) 98 11/17/19 16:00 98 Intake and Output 11/17/19 11/18/19 19:00 07:00 Intake Total 360 ml 240 ml Balance 360 ml 240 ml Intake Oral 360 ml 240 ml # Voids 3 2 General Appearance: WD/WN HEENT: normocephalic, atraumatic Respiratory/Chest: chest wall non-tender, lungs clear Breasts: no masses Cardiovascular: normal peripheral pulses, normal rate, regular rhythm Abdomen: normal bowel sounds, soft, non tender Genitourinary: normal external genitalia Skin: no rash Neurologic/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: 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 normal Laboratory Tests 11/18/19 05:25: White Blood Count 10.3, Red Blood Count 4.86, Hemoglobin 15.0, Hematocrit 44.3, Mean Corpuscular Volume 91, Mean Corpuscular Hemoglobin 30.9, Mean Corpuscular Hemoglobin Concent 33.9, Red Cell Distribution Width 12.5, Platelet Count 418, Mean Platelet Volume 7.1, Neutrophils (%) (Auto) 62.7, Lymphocytes (%) (Auto) 26.5, Monocytes (%) (Auto) 8.4, Eosinophils (%) (Auto) 1.3, Basophils (%) (Auto ) 1.2, Sodium Level 136, Potassium Level 3.5, Chloride Level 97L, Carbon Dioxide Level 31, Anion Gap 8, Blood Urea Nitrogen 10, Creatinine 0.9, Estimat Glomerular Filtration Rate > 60, Glucose Level 95, Calcium Level 9.8, Magnesium Level 2.2 Current Medications Medications (Trade) Dose Ordered Sig/Gracie Route PRN Reason Start Time Stop Time Status Last Admin Dose Admin Acetaminophen/ Hydrocodone Bitart ([place] 10/325) 1 tab Q8H PRN ORAL Pain Scale (6-10) 11/15/19 13:15 11/22/19 00:44 11/18/19 10:59 Aspirin (ASA) 81 mg DAILY ORAL 11/15/19 09:00 12/15/19 08:59 11/18/19 08:59 Atorvastatin Calcium (Lipitor) 80 mg BEDTIME ORAL 11/15/19 21:00 12/15/19 20:59 11/17/19 21:02 Baclofen (Lioresal) 10 mg THREE TIMES A DAY ORAL 11/16/19 18:00 12/16/19 17:59 11/18/19 08:59 Clopidogrel Bisulfate (Plavix) 75 mg DAILY ORAL 11/15/19 09:00 12/15/19 08:59 11/18/19 08:59 Enalaprilat (Vasotec) 2.5 mg EVERY 4 HOURS PRN IV sbp more than 200 11/15/19 08:15 12/15/19 08:14 Gabapentin (Neurontin) 600 mg THREE TIMES A DAY ORAL 11/15/19 09:00 12/15/19 08:59 11/18/19 08:59 Heparin Sodium (Porcine) (Heparin 5000 units/ml) 5,000 units EVERY 12 HOURS SUBQ 11/15/19 09:30 12/15/19 09:29 11/18/19 09:00 Hydralazine HCl (Apresoline) 20 mg Q4H PRN IV sbp more than 160 11/15/19 08:15 12/15/19 08:14 11/15/19 21:01 Ibuprofen (Motrin) 600 mg Q4H PRN ORAL Pain Scale (3-5) 11/15/19 13:00 12/15/19 12:59 11/16/19 21:32 Labetalol HCl (Normodyne) 20 mg EVERY HOUR PRN IV sbo more than 180 11/15/19 08:15 12/15/19 08:14 Letrozole (Femara) 2.5 mg DAILY ORAL 11/15/19 09:00 11/20/19 08:59 11/18/19 08:59 Losartan Potassium (Cozaar) 25 mg BID ORAL 11/18/19 09:00 12/18/19 08:59 11/18/19 08:59 Nicotine (Nicoderm) 1 patch Q24H TDERMAL 11/16/19 17:00 12/16/19 16:59 11/17/19 17:29 Ondansetron HCl (Zofran ODT) 4 mg TIDPRN PRN ORAL Nausea & Vomiting 11/15/19 00:45 12/15/19 00:44 Pantoprazole (Protonix) 40 mg DAILY ORAL 11/15/19 09:00 12/15/19 08:59 11/18/19 08:59 Topiramate (Topamax) 25 mg BEDTIME ORAL 11/17/19 21:00 12/17/19 20:59 11/17/19 21:02 Isael Mack MD Nov 18, 2019 13:01
--- NOTE | 2019-11-18 13:58 | NUR ---
DISCHARGE PLANNING: HAS BEEN ACCEPTED BY [facility] T: [phone] DURAN FROM [facility] CONFIRMED WAITING FOR DISCHARGE ORDER
[2019-11-18 16:00] VITALS: BP 100/70
--- NOTE | 2019-11-18 16:57 | NUR ---
NURSE NOTES: Per nam Shen to remove Zio patch for MRI and reattach. Order noted, entered, acknowledged.
--- NOTE | 2019-11-18 17:00 | Progress Note ---
DATE: 11/18/2019 SUBJECTIVE: The patient is still complaining of pretty much daily constant diffuse throbbing headache since last Saturday. The pain is moderate to severe. There is no nausea or vomiting. She did not have an MRI scan of the brain because of Zio patch that was placed on her. There is no new muscle weakness, numbness or tingling, diplopia, dysarthria, dysphagia. PHYSICAL EXAMINATION: VITAL SIGNS: Blood pressure is 148/87, temperature is 98.1 degrees, respiration rate is 18. MENTAL STATUS: The patient's language is normal. Comprehension is normal. She can spell world backwards and forwards without difficulty. CRANIAL NERVES: Cranial nerves II through XII are intact except for decreased gag bilaterally. Extraocular motility is full. MUSCLE EXAMINATION: Muscle bulk and tone are normal. Strength is 5/5 proximally and distally without pronator drift. REFLEXES: +2 in the upper extremities, +1 in her knees and ankles with downgoing toes. COORDINATION: [id number], [id number] testing intact. IMPRESSION: The patient is status migrainosus. 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 She will need the MRI scan of the brain. The Zio patch will be discontinued. Sumatriptan also will be discontinued. The patient was placed on Topamax last night. I am going to try her on Depakote 500 mg b.i.d. and nortriptyline 25 mg for headache. A lumbar puncture might be necessary, although I doubt that this is infection. PLAN: 1. MRI scan of the brain today without gadolinium. 2. Depakote 500 mg p.o. b.i.d. and nortriptyline 25 mg. 3. Discontinue Topamax at some point. Andrez Sims MD DR: RODRÍGUEZ JOB#: [id number] CC:
--- NOTE | 2019-11-18 18:05 | Internal Med Progress Note ---
Subjective Date of Service: Nov 18, 2019 Physician Name Brennen Dunn Attending Physician Jame North MD Current Medications Medications (Trade) Dose Ordered Sig/Gracie Route PRN Reason Start Time Stop Time Status Last Admin Dose Admin Acetaminophen/ Hydrocodone Bitart ([place] 10/325) 1 tab Q8H PRN ORAL Pain Scale (6-10) 11/15/19 13:15 11/22/19 00:44 11/18/19 10:59 Aspirin (ASA) 81 mg DAILY ORAL 11/15/19 09:00 12/15/19 08:59 11/18/19 08:59 Atorvastatin Calcium (Lipitor) 80 mg BEDTIME ORAL 11/15/19 21:00 12/15/19 20:59 11/17/19 21:02 Baclofen (Lioresal) 10 mg THREE TIMES A DAY ORAL 11/16/19 18:00 12/16/19 17:59 11/18/19 17:33 Clopidogrel Bisulfate (Plavix) 75 mg DAILY ORAL 11/15/19 09:00 12/15/19 08:59 11/18/19 08:59 Enalaprilat (Vasotec) 2.5 mg EVERY 4 HOURS PRN IV sbp more than 200 11/15/19 08:15 12/15/19 08:14 Gabapentin (Neurontin) 600 mg THREE TIMES A DAY ORAL 11/15/19 09:00 12/15/19 08:59 11/18/19 17:33 Heparin Sodium (Porcine) (Heparin 5000 units/ml) 5,000 units EVERY 12 HOURS SUBQ 11/15/19 09:30 12/15/19 09:29 11/18/19 09:00 Hydralazine HCl (Apresoline) 20 mg Q4H PRN IV sbp more than 160 11/15/19 08:15 12/15/19 08:14 11/15/19 21:01 Ibuprofen (Motrin) 600 mg Q4H PRN ORAL Pain Scale (3-5) 11/15/19 13:00 12/15/19 12:59 11/16/19 21:32 Labetalol HCl (Normodyne) 20 mg EVERY HOUR PRN IV sbo more than 180 11/15/19 08:15 12/15/19 08:14 Letrozole (Femara) 2.5 mg DAILY ORAL 11/15/19 09:00 11/20/19 08:59 11/18/19 08:59 Losartan Potassium (Cozaar) 25 mg BID ORAL 11/18/19 09:00 12/18/19 08:59 11/18/19 08:59 Nicotine (Nicoderm) 1 patch Q24H TDERMAL 11/16/19 17:00 12/16/19 16:59 11/18/19 16:05 Ondansetron HCl (Zofran ODT) 4 mg TIDPRN PRN ORAL Nausea & Vomiting 11/15/19 00:45 12/15/19 00:44 Pantoprazole (Protonix) 40 mg DAILY ORAL 11/15/19 09:00 12/15/19 08:59 11/18/19 08:59 Topiramate (Topamax) 25 mg BEDTIME ORAL 11/17/19 21:00 12/17/19 20:59 11/17/19 21:02 Allergies: Coded Allergies: METRONIDAZOLE (Verified Allergy, Unknown, 11/09/19) ROS Limited/Unobtainable: No Constitutional: Reports: no symptoms HEENT: Reports: no symptoms Cardiovascular: Reports: no symptoms Respiratory: Reports: no symptoms Gastrointestinal/Abdominal: Reports: no symptoms Genitourinary: Reports: no symptoms Neurologic/Psychiatric: Reports: no symptoms Subjective 54 YO F admitted with slurred speech and right hemiplegia. Now subacute cerebral vascular accident. Cover for Int Hal-Dr North Objective Last Vital Signs Date Time Temp Pulse Resp B/P (MAP) Pulse Ox O2 Delivery O2 Flow Rate FiO2 11/18/19 17:31 100/70 11/18/19 16:00 98.2 103 18 97 11/18/19 09:00 Room Air Laboratory Tests Test 11/18/19 05:25 White Blood Count 10.3 K/UL (4.8-10.8) Red Blood Count 4.86 M/UL (4.20-5.40) Hemoglobin 15.0 G/DL (12.0-16.0) Hematocrit 44.3 % (37.0-47.0) Mean Corpuscular Volume 91 FL (80-99) Mean Corpuscular Hemoglobin 30.9 PG (27.0-31.0) Mean Corpuscular Hemoglobin Concent 33.9 G/DL (32.0-36.0) Red Cell Distribution Width 12.5 % (11.6-14.8) Platelet Count 418 K/UL (150-450) Mean Platelet Volume 7.1 FL (6.5-10.1) Neutrophils (%) (Auto) 62.7 % (45.0-75.0) Lymphocytes (%) (Auto) 26.5 % (20.0-45.0) Monocytes (%) (Auto) 8.4 % (1.0-10.0) Eosinophils (%) (Auto) 1.3 % (0.0-3.0) Basophils (%) (Auto) 1.2 % (0.0-2.0) Sodium Level 136 MMOL/L (136-145) Potassium Level 3.5 MMOL/L (3.5-5.1) Chloride Level 97 MMOL/L (98-107) L Carbon Dioxide Level 31 MMOL/L (21-32) Anion Gap 8 mmol/L (5-15) Blood Urea Nitrogen 10 mg/dL (7-18) Creatinine 0.9 MG/DL (0.55-1.30) Estimat Glomerular Filtration Rate > 60 mL/min (>60) Glucose Level 95 MG/DL (74-106) Calcium Level 9.8 MG/DL (8.5-10.1) Magnesium Level 2.2 MG/DL (1.8-2.4) Intake and Output 11/17/19 11/18/19 19:00 07:00 Intake Total 360 ml 240 ml Balance 360 ml 240 ml Intake Oral 360 ml 240 ml # Voids 3 2 Objective PHYSICAL EXAMINATION: GENERAL: The patient is well-developed and well-nourished slightly obese female, in no apparent distress. HEENT: Eyes, pupils are equal and responsive to light and accommodation. Extraocular movements are intact. NECK: Supple without lymphadenopathy. CHEST: Lungs are clear to auscultation bilaterally without wheezes or rales. CARDIOVASCULAR: Regular rhythm and rate. S1, S2. No murmurs, rubs, or gallops. ABDOMEN: Soft, nontender, nondistended. Positive bowel sounds. No evidence of hepatosplenomegaly. Currently, no rebound or guarding noted. EXTREMITIES: Negative for clubbing, cyanosis, edema. NEUROLOGICALLY: Cranial nerves II through XII are grossly intact without focal deficits. Motor strength is 5/5 bilaterally. Deep tendon reflexes are 2+ plantar. Assessment/Plan Assessment/Plan ASSESSMENT: This is a 54-year-old female: 1. Dysarthria. 2. Right hemiplegia. 3. Cerebrovascular accident. 4. Hypertension. 5. Hypercholesterolemia. TREATMENT: 1. Dysarthria/right hemiplegia/cerebrovascular accident. A Neurology consultation has been obtained with Dr. Sims . An MRI of the brain was cancelled due to continuous laboratory monitor. A CT scan at [place] revealed subacute left basal ganglia cerebrovascular accident. We will follow recommendations of Neurology. 2. Hypertension. Continue hydrochlorothiazide and losartan as above. 3. Hypercholesterolemia. Continue atorvastatin as above. 4. Discharge planning: home with home health/PT Brennen Dunn MD Nov 18, 2019 18:05
[2019-11-18] MEDS ORDERED: NS 275ml ONE (18:13)
[2019-11-18] MEDS ORDERED: Tubing IV Secondary IV ONE (18:13)
--- NOTE | 2019-11-18 19:51 | NUR ---
HAND-OFF: Report given to JEFF Sanchez.
[2019-11-18 20:00] VITALS: BP 127/86
--- NOTE | 2019-11-18 20:33 | Cardiology Progress Note ---
Assessment/Plan Assessment/Plan 1. Expressive aphasia. 2. Recent stroke. 3. Electrolyte abnormalities including hypokalemia. 4. Hypertension. 5. Hyperlipidemia. 6. Obesity. 7. Sleep apnea. 8. History of breast cancer, on a trial. full note dictated dc hctz may consider endocrine rae in light of hypokalemia and htn although likely related to hctz will dc for nwo correct k andmg deficit repeat ekg ziopatch in place will need to remove beofre mri and try to reattache post keep on tele neuro rae d/w dr garces Subjective Cardiovascular: Denies: chest pain, lightheadedness, palpitations Respiratory: Denies: shortness of breath Gastrointestinal/Abdominal: Denies: abdominal pain Genitourinary: Denies: burning Objective Last 24 Hour Vital Signs Date Time Temp Pulse Resp B/P (MAP) Pulse Ox O2 Delivery O2 Flow Rate FiO2 11/18/19 17:31 100/70 11/18/19 16:00 98.2 103 18 100/70 (80) 97 11/18/19 16:00 103 11/18/19 12:00 98.2 93 18 130/84 (99) 98 11/18/19 12:00 112 11/18/19 09:00 Room Air 11/18/19 08:59 148/87 11/18/19 08:00 98.1 113 18 148/87 (107) 100 11/18/19 08:00 110 11/18/19 04:00 101 11/18/19 04:00 98.0 90 20 146/91 (109) 97 11/18/19 00:00 98.1 107 20 140/78 (98) 98 11/18/19 00:00 100 11/17/19 21:00 Room Air General Appearance: no apparent distress, alert Neck: normal alignment Cardiovascular: normal rate Respiratory/Chest: lungs clear, normal breath sounds Abdomen: normal bowel sounds, non tender, soft Extremities: no swelling Intake and Output 11/17/19 11/18/19 19:00 07:00 Intake Total 360 ml 240 ml Balance 360 ml 240 ml Intake Oral 360 ml 240 ml # Voids 3 2 Laboratory Tests Test 11/18/19 05:25 White Blood Count 10.3 K/UL (4.8-10.8) Red Blood Count 4.86 M/UL (4.20-5.40) Hemoglobin 15.0 G/DL (12.0-16.0) Hematocrit 44.3 % (37.0-47.0) Mean Corpuscular Volume 91 FL (80-99) Mean Corpuscular Hemoglobin 30.9 PG (27.0-31.0) Mean Corpuscular Hemoglobin Concent 33.9 G/DL (32.0-36.0) Red Cell Distribution Width 12.5 % (11.6-14.8) Platelet Count 418 K/UL (150-450) Mean Platelet Volume 7.1 FL (6.5-10.1) Neutrophils (%) (Auto) 62.7 % (45.0-75.0) Lymphocytes (%) (Auto) 26.5 % (20.0-45.0) Monocytes (%) (Auto) 8.4 % (1.0-10.0) Eosinophils (%) (Auto) 1.3 % (0.0-3.0) Basophils (%) (Auto) 1.2 % (0.0-2.0) Sodium Level 136 MMOL/L (136-145) Potassium Level 3.5 MMOL/L (3.5-5.1) Chloride Level 97 MMOL/L (98-107) L Carbon Dioxide Level 31 MMOL/L (21-32) Anion Gap 8 mmol/L (5-15) Blood Urea Nitrogen 10 mg/dL (7-18) Creatinine 0.9 MG/DL (0.55-1.30) Estimat Glomerular Filtration Rate > 60 mL/min (>60) Glucose Level 95 MG/DL (74-106) Calcium Level 9.8 MG/DL (8.5-10.1) Magnesium Level 2.2 MG/DL (1.8-2.4) Cole Isaac MD Nov 18, 2019 20:33
[2019-11-18] MEDS: Topiramate 25mg tab ORAL SCH (22:04)
[2019-11-18] MEDS: Atorvastatin 80mg tab ORAL SCH (22:04)
--- NOTE | 2019-11-18 22:51 | NUR ---
NURSE NOTES: Received report from JEFF Zuniga. Patient is in bed, awake and responsive. Breathing regular and unlabored with no s/s of SOB noted at this time. Patient denies any pain or discomfort. IV is patent, intact, and saline locked. Bed is in lowest position, breaks engaged, and call light is within reach at all times. All needs are attended to, patient is comfortably resting. Will continue to monitor. Addendum: 11/18/19 at 2255 by Maranda Nguyen RN NURSE NOTES: Received report from gilberto Barajas.
[2019-11-19] VITALS: BP 127/91
[2019-11-19] MEDS: HYDROcodone/Acetamin 10/325 tab ORAL PRN (03:37)
[2019-11-19 04:00] VITALS: BP 140/93
[2019-11-19 07:26] LABS: BASOPHILS % (AUTO) 0.9 % (0.0-2.0); EOSINOPHILS % (AUTO) 1.5 % (0.0-3.0); HEMOGLOBIN 13.9 G/DL (12.0-16.0); LYMPHOCYTES % (AUTO) 30.5 % (20.0-45.0); MEAN CORPUSCULAR VOLUME 91 FL (80-99); MONOCYTES % (AUTO) 9.3 % (1.0-10.0); NEUTROPHILS % (AUTO) 57.8 % (45.0-75.0); PLATELET COUNT 397 K/UL (150-450); RED CELL DISTRIBUTION WIDTH 12.6 % (11.6-14.8); WHITE BLOOD COUNT 11.6 K/UL (4.8-10.8)
--- NOTE | 2019-11-19 07:43 | NUR ---
HAND-OFF: Report given to JEFF Shannon. Patient is stable.
[2019-11-19 07:47] LABS: ANION GAP 11 mmol/L (5-15); BLOOD UREA NITROGEN 17 mg/dL (7-18); CALCIUM 9.4 MG/DL (8.5-10.1); CARBON DIOXIDE 26 MMOL/L (21-32); CHLORIDE 99 MMOL/L (98-107); CREATININE 1.3 MG/DL (0.55-1.30); POTASSIUM 3.9 MMOL/L (3.5-5.1); SODIUM 136 MMOL/L (136-145)
--- NOTE | 2019-11-19 07:56 | NUR ---
NURSE NOTES: pt. on producer assistant, no signs of cardiac or respiratory distress at this time. Food tray at bedside. Call light within reach, bed is locked and in lowest position. IV site patent. Will continue to monitor. Pt is schedule to have MRI today.
[2019-11-19 08:17] VITALS: BP 118/83
[2019-11-19] MEDS: Heparin 5000 units/ml inj SUBQ SCH ×2 (09:00→09:57)
[2019-11-19] MEDS: Aspirin Baby 81mg ORAL SCH (09:53)
[2019-11-19] MEDS: Losartan 25mg tab ORAL SCH ×3 (09:54→18:00)
[2019-11-19 12:07] VITALS: BP 123/75
[2019-11-19 16:00] VITALS: BP 108/59
[2019-11-19] MEDS ORDERED: Valproate Sodium INJ 500 MG in D5W 55 ML IVPB SCH (16:00)
--- NOTE | 2019-11-19 16:42 | NUR ---
NURSE NOTES: DC Gabapentin per Dr. Duffy, Addendum: 11/19/19 at 2002 by Mirtha Ramirez RN NURSE NOTES: DC Gabapentin per Dr. Duffy and Give Depakote 500mg Iv twice/day. [id number]
--- NOTE | 2019-11-19 17:50 | Internal Med Progress Note ---
Subjective Date of Service: Nov 19, 2019 Physician Name Brennen Dunn Attending Physician Jame North MD Current Medications Medications (Trade) Dose Ordered Sig/Gracie Route PRN Reason Start Time Stop Time Status Last Admin Dose Admin Acetaminophen/ Hydrocodone Bitart ([place] 10/325) 1 tab Q8H PRN ORAL Pain Scale (6-10) 11/15/19 13:15 11/22/19 00:44 11/19/19 03:37 Aspirin (ASA) 81 mg DAILY ORAL 11/15/19 09:00 12/15/19 08:59 11/19/19 09:53 Atorvastatin Calcium (Lipitor) 80 mg BEDTIME ORAL 11/15/19 21:00 12/15/19 20:59 11/18/19 22:04 Baclofen (Lioresal) 10 mg THREE TIMES A DAY ORAL 11/16/19 18:00 12/16/19 17:59 11/19/19 13:12 Clopidogrel Bisulfate (Plavix) 75 mg DAILY ORAL 11/15/19 09:00 12/15/19 08:59 11/19/19 09:54 Enalaprilat (Vasotec) 2.5 mg EVERY 4 HOURS PRN IV sbp more than 200 11/15/19 08:15 12/15/19 08:14 Heparin Sodium (Porcine) (Heparin 5000 units/ml) 5,000 units EVERY 12 HOURS SUBQ 11/15/19 09:30 12/15/19 09:29 11/19/19 09:57 Hydralazine HCl (Apresoline) 20 mg Q4H PRN IV sbp more than 160 11/15/19 08:15 12/15/19 08:14 11/15/19 21:01 Ibuprofen (Motrin) 600 mg Q4H PRN ORAL Pain Scale (3-5) 11/15/19 13:00 12/15/19 12:59 11/19/19 09:53 Labetalol HCl (Normodyne) 20 mg EVERY HOUR PRN IV sbo more than 180 11/15/19 08:15 12/15/19 08:14 Letrozole (Femara) 2.5 mg DAILY ORAL 11/15/19 09:00 11/20/19 08:59 11/19/19 09:55 Losartan Potassium (Cozaar) 25 mg BID ORAL 11/18/19 09:00 12/18/19 08:59 11/19/19 09:54 Nicotine (Nicoderm) 1 patch Q24H TDERMAL 11/16/19 17:00 12/16/19 16:59 11/18/19 16:05 Ondansetron HCl (Zofran ODT) 4 mg TIDPRN PRN ORAL Nausea & Vomiting 11/15/19 00:45 12/15/19 00:44 Pantoprazole (Protonix) 40 mg DAILY ORAL 11/15/19 09:00 12/15/19 08:59 11/19/19 09:53 Topiramate (Topamax) 25 mg BEDTIME ORAL 11/17/19 21:00 12/17/19 20:59 11/18/19 22:04 Valproate Sodium 500 mg/Dextrose 60 ml @ 60 mls/hr Q12H IVPB 11/19/19 16:00 12/19/19 15:59 Allergies: Coded Allergies: METRONIDAZOLE (Verified Allergy, Unknown, 11/09/19) ROS Limited/Unobtainable: No Constitutional: Reports: no symptoms HEENT: Reports: no symptoms Cardiovascular: Reports: no symptoms Respiratory: Reports: no symptoms Gastrointestinal/Abdominal: Reports: no symptoms Genitourinary: Reports: no symptoms Subjective 54 YO F admitted with slurred speech and right hemiplegia. Now subacute cerebral vascular accident. Cover for Int Hal-Dr North Objective Last Vital Signs Date Time Temp Pulse Resp B/P (MAP) Pulse Ox O2 Delivery O2 Flow Rate FiO2 11/19/19 12:22 110 11/19/19 12:07 97.9 18 123/75 (91) 95 11/19/19 08:22 Room Air Laboratory Tests Test 11/19/19 05:24 White Blood Count 11.6 K/UL (4.8-10.8) H Red Blood Count 4.50 M/UL (4.20-5.40) Hemoglobin 13.9 G/DL (12.0-16.0) Hematocrit 41.0 % (37.0-47.0) Mean Corpuscular Volume 91 FL (80-99) Mean Corpuscular Hemoglobin 30.9 PG (27.0-31.0) Mean Corpuscular Hemoglobin Concent 33.9 G/DL (32.0-36.0) Red Cell Distribution Width 12.6 % (11.6-14.8) Platelet Count 397 K/UL (150-450) Mean Platelet Volume 6.7 FL (6.5-10.1) Neutrophils (%) (Auto) 57.8 % (45.0-75.0) Lymphocytes (%) (Auto) 30.5 % (20.0-45.0) Monocytes (%) (Auto) 9.3 % (1.0-10.0) Eosinophils (%) (Auto) 1.5 % (0.0-3.0) Basophils (%) (Auto) 0.9 % (0.0-2.0) Sodium Level 136 MMOL/L (136-145) Potassium Level 3.9 MMOL/L (3.5-5.1) Chloride Level 99 MMOL/L (98-107) Carbon Dioxide Level 26 MMOL/L (21-32) Anion Gap 11 mmol/L (5-15) Blood Urea Nitrogen 17 mg/dL (7-18) Creatinine 1.3 MG/DL (0.55-1.30) Estimat Glomerular Filtration Rate 51.9 mL/min (>60) Glucose Level 96 MG/DL (74-106) Calcium Level 9.4 MG/DL (8.5-10.1) Intake and Output 11/18/19 11/19/19 19:00 07:00 Intake Total 240 ml 480 ml Balance 240 ml 480 ml Intake Oral 240 ml Other 480 ml # Voids 3 # Bowel Movements 1 Objective PHYSICAL EXAMINATION: GENERAL: The patient is well-developed and well-nourished slightly obese female, in no apparent distress. HEENT: Eyes, pupils are equal and responsive to light and accommodation. Extraocular movements are intact. NECK: Supple without lymphadenopathy. CHEST: Lungs are clear to auscultation bilaterally without wheezes or rales. CARDIOVASCULAR: Regular rhythm and rate. S1, S2. No murmurs, rubs, or gallops. ABDOMEN: Soft, nontender, nondistended. Positive bowel sounds. No evidence of hepatosplenomegaly. Currently, no rebound or guarding noted. EXTREMITIES: Negative for clubbing, cyanosis, edema. NEUROLOGICALLY: Cranial nerves II through XII are grossly intact without focal deficits. Motor strength is 5/5 bilaterally. Deep tendon reflexes are 2+ plantar. Assessment/Plan Assessment/Plan ASSESSMENT: This is a 54-year-old female: 1. Dysarthria. 2. Right hemiplegia. 3. Cerebrovascular accident. 4. Hypertension. 5. Hypercholesterolemia. TREATMENT: 1. Dysarthria/right hemiplegia/cerebrovascular accident. A Neurology consultation has been obtained with Dr. Sims . Await MRI of the brain results. A CT scan at [place] revealed subacute left basal ganglia cerebrovascular accident. We will follow recommendations of Neurology. 2. Hypertension. Continue hydrochlorothiazide and losartan as above. 3. Hypercholesterolemia. Continue atorvastatin as above. 4. Discharge planning: home with home health/PT Brennen Dunn MD Nov 19, 2019 17:50
[2019-11-19 18:00] VITALS: BP 108/59
--- NOTE | 2019-11-19 19:25 | NUR ---
NURSE NOTES: Per. doctor Tati, pt didn't have a stroke it is ok for her to go home, she is cleared by him.
--- NOTE | 2019-11-19 19:34 | Diagnostic Imaging Report ---
Indication: Severe headache, right hemiplegia Technique: sagittal T1 fast spin echo, axial T1 FLAIR, axial T2 FLAIR, axial T2 FS PROPELLER, axial T2* GRE, axial diffusion weighted images. ADC and exponential ADC maps generated Comparison: 11/13/[address] Findings: No abnormal areas of restricted diffusion to suggest acute infarction. No acute hemorrhage or edema. No mass effect nor midline shift. Is minimal age-related enlargement of the ventricles and extra axial CSF spaces. Old lacunar infarct in the left anterior basal ganglia region results in some ex vacuo dilatation of the anterior body and frontal horn of the left lateral ventricle. There is fairly extensive periventricular deep white matter high T2 signal. The visualized orbits and sinuses are unremarkable. . The vascular flow voids are preserved. Impression: Negative for acute intracranial bleed, mass effect, or infarct Chronic and age-related changes, as described Old anterior left basal ganglia infarct This essentially agrees with the preliminary interpretation provided overnight by [facility] teleradiology service, with minor variation.
--- NOTE | 2019-11-19 19:46 | NUR ---
NURSE NOTES Messaged David North MD. regarding patient's MRI result (negative), cleared by MD Bethany. to OR home. Awaiting call-back.
--- NOTE | 2019-11-19 20:17 | NUR ---
HAND-OFF: Report given to Ziyad/RN pt is being DC today.
--- NOTE | 2019-11-19 20:20 | NUR ---
NURSE NOTES: Received report from Mandie Ramirez RN. Patient in bed AAO X4 with no complaints of acute pain or distress noted. Kept clean dry, clean, and comfortable in bed. Placed on continuous cardiac monitoring per protocol, siderails X2 up, call light within reach, bed in lowest position, brakes and alarm on at all times. Needs and wants anticipated and attended, will continue plan of care. DC to home order active.
[2019-11-19] MEDS: Atorvastatin 80mg tab ORAL SCH (20:59)
[2019-11-19] MEDS ORDERED: Topiramate 25mg tab ORAL SCH (21:00)
--- NOTE | 2019-11-19 23:30 | Progress Note ---
DATE: 11/19/2019 SUBJECTIVE: The patient had her MRI scan of the brain today. It did not reveal any new stroke. In fact, it all showed scattered periventricular and subcortical white matter T2 FLAIR hyperintensities compatible with microvascular disease or migraine headaches. Still complaining of headaches today. Had one Ibuprofen and one hydrocodone today. She does not have any nausea or vomiting, but still has headaches. She was given IV Depakote 1 dose, which has not done much yet. She will have another IV dose today. The patient stroke. There is a discrepancy that doing the CT scan of the brain. Previous CT scan of the brain and MRI is consistent with migraine headaches, ischemic vascular disease. More uncommon diagnoses such as multiple sclerosis . I have not looked at the study. She will obviously need another MRI scan in a month or so. The patient will continue with the IV Depakote. I have to talk with the factory laborer about starting nortriptyline as well. PHYSICAL EXAMINATION: VITAL SIGNS: Blood pressure is 108/59, pulse rate is 110, temperature is 97.9 degrees earlier. MENTAL STATUS: The patient is asleep and is awakened quite easily. MENTAL STATUS: Without any change. IMPRESSION: The patient has status migrainosus. White count was increased to 11,600. PLAN: 1. Repeat CBC. 2. Speak with the factory laborer. 3. Repeat MRI scan in 1 month with and without contrast. Andrez Sims MD DR: PARVIN/CRISTINA JOB#: [id number] CC:
--- NOTE | 2019-11-23 11:56 | Discharge Summary ---
Discharge Summary Discharge Summary _ DATE OF ADMISSION: 11/14/2019 DATE OF DISCHARGE: 11/19/2019 DISCHARGED BY: Dr. North REASON FOR ADMISSION: 54 years old female with past medical history of hypertension, transient ischemic attack, initially was taken to [facility] with acute onset of slurred speech. CT of the head done in the [facility] revealed subacute left basal ganglia cerebrovascular accident. Patient subsequently was transferred to [facility] due to insurance reason for further evaluation and management. CONSULTANTS: biomedical engineering director neurologist Dr. Sims pulmonary/critical care Dr. Mack [facility] COURSE: Patient admitted to telemetry floor. Neurologist closely followed. MRI of the brain revealed no acute intracranial bleeding mass-effect or infarct. Chronic and age-related changes noted. Old anterior left basal ganglia infarct noted. Dual antiplatelet therapy with aspirin and Plavix and statin continued. Lipid panel was stable. Patient was counseled on compliance with low-fat low-cholesterol cardiac diet. Echocardiogram revealed preserved ejection fraction of 60% with no evidence of left ventricular hypertrophy. No evidence of wall motion abnormality. No mitral regurgitation. Right ventricular systolic pressure of 16. Carotid duplex revealed minimal stenosis . Patient also complained of the headaches. Per neurologist, CT scan and MRI were consistent with migraine headache, ischemia of vascular disease. Pain management was provided . Prophylactic management of migraine initiated. Imitrex was on board as needed. Neurologist recommended repeat another MRI in a month or so with and without contrast. DVT and GI prophylaxis provided. Bilingual Sales Assistant followed. Blood pressure was managed with current regimen and remained stable. Potassium was replaced. Nephrotoxic's were avoided. Supplemental oxygen was on board as needed to keep pulse oximetry above 92%. Patient was counseled on abstinence from smoking. Patient declined nicotine patch. Patient clinically stabilized. Headaches resolved. Patient was stable for discharge home. 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 DISCHARGE INSTRUCTIONS: Patient was discharged home. Follow-up with a primary care provider in 1 week. Patient was recommended to repeat MRI of the brain with and without contrast in 1 month. I have been assigned to dictate discharge summary for this account. I was not involved in the patient's management. Nabila Gutierrez NP Nov 23, 2019 11:56
== END 2019-11-19 21:50 | disposition home or self-care (01) | DRG 65 ==
LOC: 2E 22:37
DX: I63.89 Other cerebral infarction (principal); G81.91 Hemiplegia, unspecified affecting right dominant side; R47.1 Dysarthria and anarthria; I10 Essential (primary) hypertension; E78.00 Pure hypercholesterolemia, unspecified; Z88.8 Allergy status to other drugs, medicaments and biological substances; M17.0 Bilateral primary osteoarthritis of knee; M54.40 Lumbago with sciatica, unspecified side; R47.01 Aphasia; R00.0 Tachycardia, unspecified; E87.6 Hypokalemia; G43.801 Other migraine, not intractable, with status migrainosus; Z79.82 Long term (current) use of aspirin; F17.200 Nicotine dependence, unspecified, uncomplicated; Z85.3 Personal history of malignant neoplasm of breast; G47.30 Sleep apnea, unspecified
CPT/HCPCS: 36415; 70551; 80048; 80053; 80061; 83735; 84100; 85025; 87081; 93005; 93306; 93880; J8499